=== PATIENT | female | born 1985 | race Caucasian/White ===

== ENCOUNTER 2020-03-05 13:02 | Outpatient (CLI) | payer MEDICAID | END 2020-03-05 13:03 | disposition home or self-care (01) | LOC: COV 13:02 | PROVIDERS: ATTEND Family Medicine | DX: R50.9 Fever, unspecified (principal); M79.10 Myalgia, unspecified site; R53.83 Other fatigue; R11.2 Nausea with vomiting, unspecified; Z20.828 Contact with and (suspected) exposure to other viral communicable diseases ==

== ENCOUNTER 2020-06-21 08:00 | Outpatient (CLI) | payer MEDICAID ==
[2020-06-21 13:34] LABS: BASOPHILS # (AUTO) 0.1 10^3/uL (0.0-0.1); BASOPHILS % (AUTO) 0.8 %; EOSINOPHILS # (AUTO) 0.2 10^3/uL (0.0-0.7); EOSINOPHILS % (AUTO) 2.6 %; HCT - HEMATOCRIT 40.8 % (37.0-47.0); HGB - HEMOGLOBIN 13.4 g/dL (12.0-16.0); LYMPHOCYTES # (AUTO) 1.9 10^3/uL (1.5-3.5); MEAN CORPUSCULAR HEMOGLOBIN 30.5 pg (27.0-31.0); MEAN CORPUSCULAR HGB CONC 32.8 g/dL (32.0-36.0); MEAN CORPUSCULAR VOLUME 92.7 fL (81.0-99.0); MEAN PLATELET VOLUME 10.4 fL (7.9-10.8); MONOCYTES # (AUTO) 0.7 10^3/uL (0.0-1.0); MONOCYTES % (AUTO) 8.7 %; NEUTROPHILS # (AUTO) 4.8 10^3/uL (1.5-6.6); NEUTROPHILS % (AUTO) 62.6 %; PLT - PLATELET COUNT 243 10^3/uL (130-450); RED CELL DISTRIBUTION WIDTH 13.8 % (12.0-15.0); WHITE BLOOD COUNT 7.7 x10^3/uL (4.8-10.8)
[2020-06-21 13:50] LABS: ALBUMIN 4.1 g/dL (3.2-5.5); ALBUMIN/GLOBULIN RATIO 1.1 (1.0-2.2); ALKALINE PHOSPHATASE 43 IU/L (42-121); ALT ALANINE AMINOTRANSFERASE 15 IU/L (10-60); AST ASPARTATE AMINOTRANSFERASE 17 IU/L (10-42); BILIRUBIN,TOTAL 0.5 mg/dL (0.2-1.0); BUN - BLOOD UREA NITROGEN 13 mg/dL (6-20); CALCIUM 9.3 mg/dL (8.5-10.3); CARBON DIOXIDE - CO2 23 mmol/L (21-32); CHLORIDE 108 mmol/L (101-111); CHOLESTEROL 190 mg/dL; CREATININE 0.6 mg/dL (0.4-1.0); GFR - MDRD 113 (>89); GLUCOSE 92 mg/dL (70-100); HDL CHOLESTEROL 48 mg/dL; LDL CHOLESTEROL,CALCULATED 122 mg/dL; LDL/HDL RATIO 2.5 (<4.4); SODIUM 138 mmol/L (135-145); TOTAL PROTEIN 7.9 g/dL (6.7-8.2); TRIGLYCERIDES 99 mg/dL; VLDL CHOLESTEROL 20 mg/dL
[2020-06-21 14:10] LABS: THYROID STIMULATING HORMONE 0.79 uIU/mL (0.34-5.60)
== END 2020-06-21 23:59 | disposition home or self-care (01) ==
LOC: LAB.WCP 08:00
PROVIDERS: ATTEND Nurse Practitioner
DX: Z00.00 Encounter for general adult medical examination without abnormal findings (principal); R53.83 Other fatigue; Z98.84 Bariatric surgery status; Z13.220 Encounter for screening for lipoid disorders; Z13.228 Encounter for screening for other metabolic disorders
CPT/HCPCS: 36415; 80053; 80061; 82306; 82607; 83721; 84443; 85025

== ENCOUNTER 2020-07-18 14:25 | Outpatient (CLI) | payer MEDICAID ==
--- NOTE | 2020-07-19 09:00 | Mammography Report ---
BILATERAL DIGITAL SCREENING MAMMOGRAM 3D/2D: 07/18/2020 CLINICAL: Family history of breast cancer. Routine screening. Baseline exam. No prior exams were available for comparison. The tissue of both breasts is extremely dense, which l owers the sensitivity of mammography. No significant masses, calcifications, or other findings are seen in either breast. IMPRESSION: NEGATIVE There is no mammographic evidence of malignancy. A 1 year screening mammogram is recommended. This exam was interpreted at Station ID: [id number]. NOTE: For mammograms, a report in lay terms will be sent to the patient. Approximately 15% of breast malignancies will not be visualized mammographically. In the management of a palpable breast mass, a negative mammogram must not discourage biopsy of a clinically suspicious lesion. Electronically Signed By: Case Weeks M.D., [email or web address]:07/18/2020 16:49:20 ACR BI-RADS Category 1: Negative [id number] PARENCHYMAL PATTERN: (VD) - The breast(s) demonstrate(s) extremely dense parenchyma, limiting the sen sitivity of mammography. BI-RADS CATEGORY: (1) - 1 RECOMMENDATION: (ANNUAL) - Recommend routine annual screening mammography. [id number] 1 year screening LATERALITY: (B)
== END 2020-07-18 14:26 | disposition home or self-care (01) ==
LOC: DI.N 14:25
PROVIDERS: ATTEND Nurse Practitioner
DX: Z12.31 Encounter for screening mammogram for malignant neoplasm of breast (principal); Z80.3 Family history of malignant neoplasm of breast

== ENCOUNTER 2020-07-25 08:13 | Outpatient (CLI) | payer MEDICAID ==
[2020-07-25 08:57] VITALS: BP 97/64
--- NOTE | 2020-07-25 08:57 | SLEEP CARE CONSULTATION ---
Information from patient questionnaire entered by Nasreen Thornton. I have reviewed and concur with the information entered by Nasreen Thornton. This document represents the service I personally performed and the decisions made by , Samia Ramirez ARNP. History of Present Illness Service Date and Time: 07/25/2020 0813 Reason for Visit: New patient, Previously diagnosed sleep apnea (mild - AHI 8.8 in 2013), Re-establish care Chief Complaint: reports: Unrefreshed sleep, Snoring, Excessive daytime sleepiness, Frequent awakenings at night, Other (can't sleep). denies: Observed pauses in breathing Date of Onset: months Usual bedtime: 3 am Time it takes to fall asleep: about 30 minutes if I try to go to bed before 3 am Snores at night: Yes Observed to quit breathing while asleep: No Sleeps alone due to snoring: No Number of times waking at night: 3-4 times Reasons for waking at night: reports: Pain. denies: Choking, Snoring, Gasping for air Toss, Turn, or Twitch while sleeping: Yes Recalls having dreams: No Usually gets out of bed at: 8 am Feels refreshed in the morning: No Morning headache: No Sleepy or fatigued during the day: Yes Ever fallen asleep while driving: No Takes day naps: Yes (1 time a week) Dreams during day naps: No Prior sleep studies: Yes Year and Where: 2013 [facility] Type of Sleep Study: Polysomnography Additional HPI information: SYLVIA VAZQUEZ was diagnosed to have mild, AHI 8.8, obstructive sleep apnea- hypopnea syndrome and comes in today to re-establish care. She lost her CPAP ma chine through a few moves and has not been able to use it for at least 2 years. - Parasomnia Symptoms Ever been unable to move upon waking from sleep: Yes Walks in sleep: No Talks in sleep: No Ever acted out dreams in sleep: No Ever felt weak in the knees when startled or emotional: No Bothered by creepy, crawly, restless sensations in legs: No Problems with memory or concentration: Yes Subjective Initial [place] Sleepiness Scale score: 15 (in 2013) Current [place] Sleepiness Scale score: 16 Past Medical History Past Medical History: reports: Arthritis, Anxiety, Asthma, Depression. 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 Patient is Single and lives in [place]. Have you smoked in the past 12 months: No Alcohol use: Yes Alcohol amount and frequency: 1-2 drinks every 6 months Caffeine use: Yes Caffeine amount and frequency: 1 cup coffee daily Family History Family history of sleep disordered breathing: Yes (Grandma) Family Hx Sleep Apnea: Grandparent: Sleep apnea - Treated Allergies and Home Medications Drug allergies reviewed: Yes (NKDA) Home medication list reviewed: Yes Allergy and home medication list: Amytriptyline HCI 10 mg 1 nightly Bupropion HCI 75 mg twice daily Vitamin D3 50,000 UI once a week Review of Systems Weight loss over past 5 years: 80 Cardiovascular: reports: leg or foot swelling. denies: high blood pressure Gastrointestinal: reports: nausea. denies: heartburn Neurological: reports: headaches Psychiatric: reports: anxiety, depression Ear/Nose/Throat: denies: nasal congestion, dry mouth/throat, tonsillectomy, wisdom teeth removed Endocrine: reports: sluggishness, too hot or cold Musculoskeletal: reports: back pain Immunologic: reports: allergies to food or environment (Propel) Physical Exam Blood Pressure: 97/64 Cuff size: wrist Heart Rate: 80 O2 Saturation: 97 Height: 5 ft 5 in Weight: 275 lb Body Mass Index: 45.7 BMI Classification: Morbidly Obese Heart: regular rate and rhythm Lungs: clear bilaterally Impression and Plan 1. Suspected Obstructive Sleep Apnea-Hypopnea Syndrome, as previously diagnosed and as suggested by a continuing history of loud and irregular snoring, frequent awakening during the night, unrefreshed sleep, cognitive impairment, and excessive daytime sleepiness. I reviewed with patient that a narrow oropharynx and obesity are common predisposing factors for obstructive sleep apnea-hypopnea syndrome. Patient lost her CPAP machine and would like to resume treatment. I advised her that we will have to reverify her diagnosis and severity to be able to resume CPAP therapy. She voiced understanding. I recommend proceeding to polysomnography to confirm the diagnosis and to assess severity. The pathophysiology of obstructive sleep apnea-hypopnea syndrome was discussed with the patient and health risks of cardiovascular and cerebrovascular disease if not treated. Risks of drowsy driving discussed in detail and patient advised to avoid long distance driving and to dust puller at the first sign of drowsiness. Patient agreed to plan. * Schedule polysomnography +- manual CPAP titration study and return in 1-2 weeks after the study to discuss result and initiate therapy. * Avoid long distance driving or driving when feeling sleepy. * Avoid alcohol, sedative and muscle relaxant around bedtime. * Attempt to lose weight. * Review instructions provided by trained office staff on how to prepare for the sleep study. * Return for follow-up after sleep study completed. Counseling Topics: Weight loss health impact Visit Type: In Office Time Spent with Patient (minutes): 30 Provider Statement: I spent 100% of the Face to Face Visit with the patient with greater than 50% spent counseling the patient and coordination of care.
== END 2020-07-25 08:14 | disposition home or self-care (01) ==
LOC: SC 08:13
PROVIDERS: ATTEND Nurse Practitioner Family
DX: G47.33 Obstructive sleep apnea (adult) (pediatric) (principal); E66.01 Morbid (severe) obesity due to excess calories; Z68.42 Body mass index [BMI] 45.0-49.9, adult
CPT/HCPCS: 99203; 99212

== ENCOUNTER 2020-07-31 10:32 | Emergency (ER) | payer MEDICAID ==
[2020-07-31] MEDS ORDERED: SODIUM CHLORIDE 0.9% 1,000 ML IV STA (12:36)
--- NOTE | 2020-07-31 12:40 | ED Physician Documentation ---
PD HPI NVD - Stated complaint Stated Complaint: NAUSEA/BACK PX - Chief complaint Chief Complaint: Abd Pain - History obtained from History obtained from: Patient - History of Present Illness Timing - onset: How many weeks ago (5) Timing - duration: Weeks Timing - details: Abrupt onset, Still present, Waxing and waning Associated symptoms: Other (nausea vomiting and headache) Contributing factors: Other (started with initiation of therapy with bupropion.) Improved by: Other (decreasing the dose helped for a while) Worsened by: Eating Similar symptoms before: Has not had sx before Recently seen: Clinic - Additonal information Additional information: 35-year-old female who is s/p gastric bypass surgery has developed some nausea and vomiting after starting bupropion. She was on a dose of 150 mg for about 2 weeks she had intolerable side effect of vomiting and her dose was changed to 75 twice daily. She tolerated this for some time this is now become intolerable again she is now developed nausea and dry heaves. She talk to a psychiatrist yesterday who recommended she taper off of that medication which she will start today. She did not take her dose this morning. She also has a headache she has a history of migraines she states this headache does not feel like a migraine headache. Review of Systems Constitutional: denies: Fever Eyes: denies: Decreased vision Ears: denies: Ear pain Nose: denies: Congestion Throat: denies: Sore throat Cardiac: denies: Chest pain / pressure, Palpitations Respiratory: denies: Dyspnea, Cough GI: reports: Nausea, Vomiting. denies: Abdominal Pain, Constipation, Diarrhea : denies: Dysuria, Frequency Skin: denies: Rash Musculoskeletal: reports: Back pain (lower back pain is worse than usual.). 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 : None HEENT: None Psych: Depression Musculoskeletal: None Derm: None - Past Surgical History Past Surgical History: Yes General: Cholecystectomy, Gastric surgery Ortho: Other - Present Medications Home Medications: Ambulatory Orders Medication Instructions Recorded Confirmed Amitriptyline [Elavil] 10 mg PO DAILY 07/31/20 07/31/20 Ondansetron Odt [Zofran] 4 mg TL Q6H PRN #10 tab 07/31/20 buPROPion HCL [Bupropion HCl] 150 mg PO DAILY 07/31/20 07/31/20 - Allergies Allergies/Adverse Reactions: Allergies Allergy/AdvReac Type Severity Reaction Status Date / Time No Known Drug Allergies Allergy Verified 07/31/20 10:38 - Social History Does the pt smoke?: No Smoking Status: Never smoker Does the pt drink ETOH?: No Does the pt have substance abuse?: No - Immunizations Immunizations are current?: Yes - POLST Patient has POLST: No PD ED PE NORMAL - Vitals Vital signs reviewed: Yes (Hypertensive) - General General: Alert and oriented X 3, No acute distress, Well developed/nourished - HEENT HEENT: Atraumatic, PERRL, EOMI - Neck Neck: Supple, no meningeal sign - Cardiac Cardiac: RRR, No murmur - Respiratory Respiratory: No respiratory distress, Clear bilaterally - Abdomen Abdomen: Normal bowel sounds, Soft, Non tender, Non distended, No organomegaly - Back Back: No CVA TTP, No spinal TTP - Derm Derm: Normal color, Warm and dry, No rash - Extremities Extremities: No deformity, No edema - Neuro Neuro: Alert and oriented X 3, 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, No motor deficit, No sensory deficit, Normal speech Eye Opening: Spontaneous Motor: Obeys Commands Verbal: Oriented GCS Score: 15 - Psych Psych: Normal mood, Normal affect Results - Vitals Vitals: Vital Signs - 24 hr 07/31/20 07/31/20 07/31/20 10:38 11:51 13:00 Temperature 36.7 C 36.9 C Heart Rate 78 81 79 Respiratory 20 16 18 Rate Blood Pressure 138/84 H 111/73 115/75 O2 Saturation 99 100 100 Oxygen O2 Source Room air - Labs Labs: Laboratory Tests 07/31/20 07/31/20 07/31/20 12:13 12:47 12:47 WBC 7.0 RBC 4.67 Hgb 14.0 Hct 41.4 MCV 88.7 MCH 30.0 MCHC 33.8 RDW 12.3 Plt Count 255 MPV 9.2 Neut # (Auto) 5.1 Lymph # (Auto) 1.3 L [place] # (Auto) 0.5 Eos # (Auto) 0.1 Baso # (Auto) 0.1 Absolute Nucleated RBC 0.00 Nucleated RBC % 0.0 Sodium 140 Potassium 4.0 Chloride 103 Carbon Dioxide 24 Anion Gap 13.0 BUN 9 Creatinine 0.6 Estimated GFR (MDRD) 112 Glucose 97 Calcium 9.6 Total Bilirubin 0.6 AST 29 ALT 20 Alkaline Phosphatase 47 Total Protein 7.9 Albumin 4.1 Globulin 3.8 Albumin/Globulin Ratio 1.1 Lipase 38 Urine Color YELLOW Urine Clarity CLEAR Urine pH 7.0 Ur Specific [place] 1.015 Urine Protein NEGATIVE Urine Glucose (UA) NEGATIVE Urine Ketones NEGATIVE Urine Occult Blood NEGATIVE Urine Nitrite NEGATIVE Urine Bilirubin NEGATIVE Urine Urobilinogen 0.2 (NORMAL) Ur Leukocyte Esterase NEGATIVE Ur Microscopic Review NOT INDICATED Urine Culture Comments NOT INDICATED Procedures - IVC sono (time) 1234 Bedside IVC sono: IVC measures (cm) (1.05), Dehydration (est 1-2 liter deficit) PD MEDICAL DECISION MAKING - ED course Complexity details: reviewed old records, reviewed results, re-evaluated patient, considered differential, d/w patient ED course: 35 y/o female s/p gastric bypass has been vomiting and is dehydrated. She has headache and worsening back pain is suspect secondary to the dehydration and the vomiting appears to be an intolerance of buproprion. She is tapering her medication and we are providing hydration today. Departure - Departure Disposition: 01 Home, Self Care Clinical Impression: Dehydration Vomiting Qualifiers: Vomiting type: unspecified Vomiting Intractability: non-intractable Nausea presence: with nausea Qualified Code(s): R11.2 - Nausea with vomiting, unspecified Condition: Stable Instructions: ED Dehydration, ED Diet Vomiting Diarrhea Follow-Up: Alayna Ferrell ARNP, [employer] [Primary Care Provider] - Prescriptions: Ondansetron Odt [Zofran] 4 mg TL Q6H PRN #10 tab PRN Reason: Nausea / Vomiting Comments: continue the taper of the Bupropion and follow up with your primary as planned.
[2020-07-31 12:42] LABS: BILIRUBIN,URINE NEGATIVE (NEGATIVE); GLUCOSE, URINE (UA) NEGATIVE (NEGATIVE); KETONES,URINE (UA) NEGATIVE (NEGATIVE); LEUKOCYTE ESTERASE, URINE NEGATIVE (NEGATIVE); NITRITE,URINE NEGATIVE (NEGATIVE); OCCULT BLOOD,URINE NEGATIVE (NEGATIVE); PROTEIN,URINE NEGATIVE (NEGATIVE); UROBILINOGEN,URINE 0.2 (NORMAL) E.U./dL (NORMAL)
[2020-07-31 12:46] LABS: CLARITY,URINE CLEAR (CLEAR)
[2020-07-31 13:04] LABS: BASOPHILS # (AUTO) 0.1 10^3/uL (0.0-0.1); BASOPHILS % (AUTO) 0.7 %; EOSINOPHILS # (AUTO) 0.1 10^3/uL (0.0-0.7); EOSINOPHILS % (AUTO) 1.4 %; LYMPHOCYTES # (AUTO) 1.3 10^3/uL (1.5-3.5); LYMPHOCYTES % (AUTO) 18.9 %; MEAN CORPUSCULAR HGB CONC 33.8 g/dL (32.0-36.0); MEAN CORPUSCULAR VOLUME 88.7 fL (81.0-99.0); MEAN PLATELET VOLUME 9.2 fL (7.9-10.8); MONOCYTES # (AUTO) 0.5 10^3/uL (0.0-1.0); NEUTROPHILS # (AUTO) 5.1 10^3/uL (1.5-6.6); NEUTROPHILS % (AUTO) 71.9 %; PLT - PLATELET COUNT 255 10^3/uL (130-450); RED BLOOD COUNT 4.67 10^6/uL (4.20-5.40); RED CELL DISTRIBUTION WIDTH 12.3 % (12.0-15.0)
[2020-07-31 13:16] LABS: ALBUMIN 4.1 g/dL (3.2-5.5); ALBUMIN/GLOBULIN RATIO 1.1 (1.0-2.2); BILIRUBIN,TOTAL 0.6 mg/dL (0.2-1.0); CALCIUM 9.6 mg/dL (8.5-10.3); CREATININE 0.6 mg/dL (0.4-1.0); TOTAL PROTEIN 7.9 g/dL (6.7-8.2)
[2020-07-31 13:57] VITALS: BP 117/81
== END 2020-07-31 13:56 | disposition home or self-care (01) ==
LOC: ED 10:32
DX: E86.0 Dehydration (principal); R11.2 Nausea with vomiting, unspecified; R51.9 Headache, unspecified; M54.5 Low back pain; I10 Essential (primary) hypertension; Z98.84 Bariatric surgery status
CPT/HCPCS: 36415; 80053; 81001; 81003; 83690; 85025; 87086; 96360; 99284

== ENCOUNTER 2020-08-21 08:00 | Outpatient (CLI) | payer MEDICAID | END 2020-08-21 23:59 | disposition home or self-care (01) | LOC: LAB.WCP 08:00 | PROVIDERS: ATTEND Nurse Practitioner | DX: E55.9 Vitamin D deficiency, unspecified (principal) | CPT/HCPCS: 36415; 82306 ==

== ENCOUNTER 2020-09-16 18:03 | Outpatient (CLI) | payer MEDICAID | END 2020-09-16 18:04 | disposition EMS.NT | LOC: EMS 18:03 | DX: M54.6 Pain in thoracic spine (principal) ==

== ENCOUNTER 2020-09-16 18:50 | Outpatient (CLI) | payer MEDICAID | END 2020-09-16 18:51 | disposition critical access hospital (66) | LOC: EMS 18:50 | PROVIDERS: ATTEND Emergency Medicine | DX: M54.6 Pain in thoracic spine (principal); R07.81 Pleurodynia; X50.0XXA Overexertion from strenuous movement or load, initial encounter; Y93.89 Activity, other specified; Y92.512 Supermarket, store or market as the place of occurrence of the external cause | CPT/HCPCS: A0425; A0429; A0999 ==

== ENCOUNTER 2020-09-16 18:56 | Emergency (ER) | payer MEDICAID ==
[2020-09-16] MEDS ORDERED: KETOROLAC 30 MG/ML VIAL IVP STA (19:26)
[2020-09-16] MEDS ORDERED: LORazepam 2 MG/ML VIAL IVP STA (19:26)
[2020-09-16] MEDS ORDERED: HYDROmorphone 1 MG/ML CARPUJECT IVP STA (19:26)
--- NOTE | 2020-09-16 19:27 | ED Physician Documentation ---
PD HPI BACK PAIN - Stated complaint Stated Complaint: BACK PAIN - History obtained from History obtained from: Patient - Additional information Additional information: 35-year-old woman developed sudden onset right flank pain while lifting cat litter while shopping about 10 days ago. Its persistent since, worse with touching bending or twisting. No urinary complaints. She is had some chills and presyncopal episodes related to this and is feeling very anxious. Currently on her menses. Review of Systems Ten Systems: 10 systems reviewed and negative Constitutional: reports: Chills, Sweats. denies: Fever Cardiac: denies: Chest pain / pressure, Palpitations GI: reports: Nausea, Vomiting, Reviewed and negative. 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 : None HEENT: None Psych: Depression Musculoskeletal: None Derm: None - Past Surgical History Past Surgical History: Yes General: Cholecystectomy, Gastric surgery Ortho: Other - Present Medications Home Medications: Ambulatory Orders Medication Instructions Recorded Confirmed Cyclobenzaprine [Flexeril] 10 mg PO TID PRN #10 tablet 09/16/20 Fluoxetine HCl [Prozac] 30 mg PO DAILY 09/16/20 09/16/20 HYDROcod/ACETAM 5/325 [[place] 5/325] 1 - 2 tab PO Q6H PRN #15 tablet 09/16/20 Lidocaine Patch 5% [Lidoderm Patch] 1 patch TOP DAILY PRN #10 patch 09/16/20 - Allergies Allergies/Adverse Reactions: Allergies Allergy/AdvReac Type Severity Reaction Status Date / Time No Known Drug Allergies Allergy Verified 07/31/20 10:38 - Social History Does the pt smoke?: No Smoking Status: Never smoker Does the pt drink ETOH?: No Does the pt have substance abuse?: No - Immunizations Immunizations are current?: Yes - POLST Patient has POLST: No PD ED PE NORMAL - Vitals Vital signs reviewed: Yes - General General: Alert and oriented X 3, Other (Appears uncomfortable) - Abdomen Abdomen: Normal bowel sounds, Soft, Non tender - Back Back: Other (Quite tender to the right flank, could be muscular. No midline tenderness.) - Derm Derm: No rash - Extremities Extremities: Other (The patient has equal and normal Achilles and patellar reflexes bilaterally. Normal sensation in all areas of the legs. Patient denies saddle anesthesia. Normal strength in flexion-extension at the ankles, knees, and flexion of the hips.) - Neuro Neuro: Alert and oriented X 3, Normal speech Results - Vitals Vitals: Vital Signs - 24 hr 09/16/20 09/16/20 09/16/20 19:19 20:06 21:17 Temperature 37.3 C 36.8 C Heart Rate 90 88 85 Respiratory 18 14 16 Rate Blood Pressure 117/81 H 117/67 120/74 O2 Saturation 100 96 100 Oxygen O2 Source Room air - Labs Labs: Laboratory Tests 09/16/20 09/16/20 09/16/20 19:30 19:40 19:40 WBC 5.1 RBC 4.04 L Hgb 12.0 Hct 35.7 L MCV 88.4 MCH 29.7 MCHC 33.6 RDW 12.5 Plt Count 232 MPV 9.4 Neut # (Auto) 2.6 Lymph # (Auto) 1.6 [place] # (Auto) 0.6 Eos # (Auto) 0.2 Baso # (Auto) 0.0 Absolute Nucleated RBC 0.00 Nucleated RBC % 0.0 Sodium 136 Potassium 3.0 L Chloride 101 Carbon Dioxide 24 Anion Gap 11.0 BUN 10 Creatinine 0.6 Estimated GFR (MDRD) 112 Glucose 109 H Calcium 9.0 Urine Color YELLOW Urine Clarity HAZY Urine pH 5.0 Ur Specific [place] 1.025 Urine Protein NEGATIVE Urine Glucose (UA) NEGATIVE Urine Ketones 15 H Urine Occult Blood MODERATE H Urine Nitrite NEGATIVE Urine Bilirubin NEGATIVE Urine Urobilinogen 1 (NORMAL) Ur Leukocyte Esterase NEGATIVE Urine RBC 6-10 H Urine WBC 0-3 Ur Squamous Epith Cells FEW Squamous Urine Bacteria Few Ur Microscopic Review INDICATED Urine Culture Comments NOT INDICATED Urine HCG, Qual NEGATIVE Urine Opiates Screen NEGATIVE Ur Oxycodone Screen POSITIVE H Urine Methadone Screen NEGATIVE Ur Propoxyphene Screen NEGATIVE Ur Barbiturates Screen NEGATIVE Ur Tricyclics Screen NEGATIVE Ur Phencyclidine Scrn NEGATIVE Ur Amphetamine Screen NEGATIVE U Methamphetamines Scrn NEGATIVE U Benzodiazepines Scrn NEGATIVE Urine Cocaine Screen NEGATIVE U Cannabinoids Screen NEGATIVE PD MEDICAL DECISION MAKING - ED course ED course: 35-year-old woman presents with right flank pain, it is over her kidney but a CT demonstrates no ureterolithiasis and there is no evidence of infection. Pain was easy to control here. Note made of oxycodone in the urinalysis which is concerning, she said she had some leftover from a dental appointment and may have taken it. Departure - Departure Disposition: 01 Home, Self Care Clinical Impression: Back pain Condition: Good Record reviewed to determine appropriate education?: Yes Instructions: ED Low Back Pain Injury Prescriptions: Cyclobenzaprine [Flexeril] 10 mg PO TID PRN #10 tablet PRN Reason: Spasms Lidocaine Patch 5% [Lidoderm Patch] 1 patch TOP DAILY PRN #10 patch PRN Reason: pain HYDROcod/ACETAM 5/325 [[place] 5/325] 1 - 2 tab PO Q6H PRN #15 tablet PRN Reason: Pain Comments: No evidence of kidney stone on CT. Return for new or worsening symptoms. Heat and gentle stretching. Follow-up with your doctor and discuss physical therapy.
[2020-09-16 19:36] LABS: MUDS CUTOFF CONCENTRATIONS CUTOFF CONC BELOW:
[2020-09-16 19:37] LABS: BILIRUBIN,URINE NEGATIVE (NEGATIVE); GLUCOSE, URINE (UA) NEGATIVE (NEGATIVE); KETONES,URINE (UA) 15 mg/dL (NEGATIVE); LEUKOCYTE ESTERASE, URINE NEGATIVE (NEGATIVE); NITRITE,URINE NEGATIVE (NEGATIVE); OCCULT BLOOD,URINE MODERATE (NEGATIVE); PROTEIN,URINE NEGATIVE (NEGATIVE); UROBILINOGEN,URINE 1 (NORMAL) E.U./dL (NORMAL)
[2020-09-16 19:40] LABS: CLARITY,URINE HAZY (CLEAR); HCG UR QUAL NEGATIVE
[2020-09-16 19:47] LABS: BASOPHILS % (AUTO) 0.8 %; EOSINOPHILS # (AUTO) 0.2 10^3/uL (0.0-0.7); EOSINOPHILS % (AUTO) 3.9 %; HCT - HEMATOCRIT 35.7 % (37.0-47.0); LYMPHOCYTES # (AUTO) 1.6 10^3/uL (1.5-3.5); LYMPHOCYTES % (AUTO) 31.6 %; MEAN CORPUSCULAR HEMOGLOBIN 29.7 pg (27.0-31.0); MEAN CORPUSCULAR HGB CONC 33.6 g/dL (32.0-36.0); MEAN CORPUSCULAR VOLUME 88.4 fL (81.0-99.0); MEAN PLATELET VOLUME 9.4 fL (7.9-10.8); MONOCYTES # (AUTO) 0.6 10^3/uL (0.0-1.0); MONOCYTES % (AUTO) 12.1 %; NEUTROPHILS # (AUTO) 2.6 10^3/uL (1.5-6.6); NEUTROPHILS % (AUTO) 51.4 %; PLT - PLATELET COUNT 232 10^3/uL (130-450); RED BLOOD COUNT 4.04 10^6/uL (4.20-5.40); RED CELL DISTRIBUTION WIDTH 12.5 % (12.0-15.0); WHITE BLOOD COUNT 5.1 x10^3/uL (4.8-10.8)
[2020-09-16 19:49] LABS: AMPHETAMINE SCREEN,URINE NEGATIVE (NEGATIVE); BARBITURATE SCREEN,UR NEGATIVE (NEGATIVE); BENZODIAZEPINES SCREEN, URINE NEGATIVE (NEGATIVE); COCAINE SCREEN URINE NEGATIVE (NEGATIVE); METHADONE SCREEN, URINE NEGATIVE (NEGATIVE); METHAMPHETAMINES SCREEN, URINE NEGATIVE (NEGATIVE); OPIATE SCREEN, URINE NEGATIVE (NEGATIVE); OXYCODONE SCREEN, URINE POSITIVE (NEGATIVE); PROPOXYPHENE SCREEN, URINE NEGATIVE (NEGATIVE); THC CANNABINOID SCREEN, URINE NEGATIVE (NEGATIVE); TRICYCLIC ANTIDEPRESSANT,URINE NEGATIVE (NEGATIVE)
[2020-09-16 19:52] LABS: SQUAMOUS EPITHELIAL CELL,UR FEW Squamous (<= Few); WBC,URINE 0-3 /HPF (0-5)
[2020-09-16 19:53] LABS: BACTERIA,URINE Few /HPF (None Seen)
[2020-09-16 19:57] LABS: CREATININE 0.6 mg/dL (0.4-1.0)
--- NOTE | 2020-09-16 21:58 | CT Report ---
PROCEDURE: Abdomen/Pelvis WO INDICATIONS: R flank pain TECHNIQUE: Noncontrast 5 mm thick sections acquired from the diaphragms to the symphysis. 5 mm coronal and sagi ttal reformats were then performed. For radiation dose reduction, the following was used: automated exposure control, adjustment of mA and/or kV according to patient size. COMPARISON: None. FINDINGS: Image quality: Excellent. ABDOMEN: Lung bases: Normal Liver: Normal Spleen: Normal Gallbladder: Surgically absent Bile ducts: Normal Pancreas: Normal Adrenals: Normal Kidneys: Normal Bowel loops: Normal Postsurgical changes involving the stomach No free fluid or air. Colonic diverticulosis incidentally noted without evidence of acute inflammatio n. The appendix appears normal. Abdominal nodes: Normal Aorta: Normal IVC: Normal No ventral hernias PELVIS: Bladder: Normal Pelvic nodes: Normal Groin: Normal Bones: No vertebral body compression fracture. No suspicious bone lesion. IMPRESSION: No urolithiasis. No evidence of urinary obstruction. Normal appearance of the appendix. Additional chronic and incidental findings as above. Reviewed by: Braden Quiñones MD on 09/16/2020 9:57 PM PDT Approved by: Braden Quiñones MD on 09/16/2020 9:57 PM PDT Station ID: [id number]
[2020-09-16 22:14] VITALS: BP 118/68
== END 2020-09-16 22:15 | disposition home or self-care (01) ==
LOC: EDUNIT# → ED 18:56
DX: M54.9 Dorsalgia, unspecified (principal); R10.9 Unspecified abdominal pain; I10 Essential (primary) hypertension
CPT/HCPCS: 36415; 74176; 80048; 80306; 81001; 81025; 85025; 96374; 96375; 99284; J1170; J2060; 81003; 87086

== ENCOUNTER 2020-12-26 14:55 | Outpatient (CLI) | payer MEDICAID ==
--- NOTE | 2020-12-26 15:23 | SLEEP CARE CONSULTATION ---
Information from patient questionnaire entered by Nasreen Thornton. I have reviewed and concur with the information entered by Nasreen Thornton. This document represents the service I personally performed and the decisions made by , Samia Ramirez ARNP. History of Present Illness Service Date and Time: 12/26/2020 1455 Initial Patterson Sleepiness Scale score: 15 (in 2013) Current Patterson Sleepiness Scale score: 15 Additional HPI information: SYLVIA VAZQUEZ returns for follow up and results of the recently performed polysomnography. I explained the pathophysiology behind obstructive sleep apnea. We then spent quite a bit of time discussing different treatment options. For mild obstructive sleep apnea, surgery and oral appliance are alternatives to nasal CPAP therapy but in moderate or severe cases, nasal CPAP is the most effective and reliable treatment. Because apnea is primarily in supine position, then positional management therapy could be effective. Methods discussed such as positioning with pillows, using a T-shirt with tennis balls in the back, and shown commercial products that have a pillow format on back to prevent supine sleep. I reviewed the impact of weight changes on sleep apnea and strongly recommended losing weight. After some discussion, the patient opted to go with the nasal CPAP therapy. Nasal autoCPAP set at 4-15 cmH20 will be ordered with rationale explained. A manual titration study will be ordered if unable to find optimal pressure with office adjustments. I explained how CPAP machine works with sample devices Respironics Dreamstation and ResPSafe [id number] and what to expect when using the machine. Using CPAP every night in order to get used to it was emphasized. Patient advised to put CPAP mask on before getting into bed so as not to fall asleep without CPAP. To assist acclimation to CPAP use, it could also be used for a short time during day while reading or watching TV. The patient was instructed to call the CPAP supplier to discuss any mechanical problem that may occur. If the mask given is uncomfortable or is difficult to keep on through the night even with adjustment, contact the CPAP supplier as many will replace with another mask style if notified before 30 days. If snoring or perceives is not getting enough air or too much air from the machine, notify this office. Patient does not drink alcohol. Patient was cautioned about risks of drowsy driving until sleepiness symptoms resolve. Sleep Study - Results Type of Sleep Study: Polysomnography Prior sleep studies: Yes Year and Where: 2020 - [facility]; 2013 - [facility] Polysomnography/Home Sleep Study results: This nocturnal polysomnographic sleep study showed moderate snoring which was continuous in nature. The apnea/hypopnea index was 9.1 and the sleep efficiency was 94.1 %. The PLM index was 2.1. The sleep study is consistent with mild obstructive sleep apnea with desaturation events to 87%. Given the history of excessive dayUme sleepiness, would recommend the patient return to the sleep lab for a fullnight CPAP titration study. Alternative therapies, including dental appliances and surgical procedures could also be considered. Attaining optimal weight is recommended. The EKG showed no significant arrhythmias. Allergies and Home Medications Home medication list reviewed: Yes (no new meds) Review of Systems Review of systems same as previous: Yes (no changes) Physical Exam Heart Rate: 86 O2 Saturation: 98 Height: 5 ft 5 in Weight: 253 lb Body Mass Index: 42.0 BMI Classification: Morbidly Obese Impression and Plan 1. Obstructive Sleep Apnea-Hypopnea Syndrome, mild, with lowest oxygen saturation of 87%. Obviously this is the cause of the patients symptoms of unrefreshed sleep, and excessive daytime sleepiness. Positive pressure therapy could benefit anxiety and depression. As mentioned above, the patient will be started on nasal autoCPAP therapy with pressure set at 4-15 cmH2O. A manual titration study will be completed if unable to find optimal treatment pressure with office adjustments. Compliance guidelines also reviewed. A copy of compliance guidelines will be given for reference at check out. Because the apnea is more severe supine, I instructed to avoid sleeping supine using pillow positioning until able to start CPAP use. * Nasal auto CPAP therapy, pressure at 4-15 cm H2O. * Attempt to lose weight. * Avoid alcohol consumption near bedtime. * Avoid supine sleep until using CPAP. * The patient is again cautioned about driving until sleepiness completely resolves. * Return one month after CPAP obtained. I will assess response to therapy and compliance at that time. Counseling Topics: Weight loss health impact Time Spent with Patient (minutes): 20
== END 2020-12-26 14:56 | disposition home or self-care (01) ==
LOC: SC 14:55
PROVIDERS: ATTEND Nurse Practitioner Family
DX: G47.33 Obstructive sleep apnea (adult) (pediatric) (principal); E66.01 Morbid (severe) obesity due to excess calories; Z68.41 Body mass index [BMI] 40.0-44.9, adult
CPT/HCPCS: 99212; 99213

== ENCOUNTER 2021-01-22 08:00 | Outpatient (CLI) | payer MEDICAID ==
[2021-01-22 18:55] LABS: BASOPHILS # (AUTO) 0.1 10^3/uL (0.0-0.1); BASOPHILS % (AUTO) 0.6 %; EOSINOPHILS # (AUTO) 0.1 10^3/uL (0.0-0.7); EOSINOPHILS % (AUTO) 1.8 %; HCT - HEMATOCRIT 36.6 % (37.0-47.0); HGB - HEMOGLOBIN 11.5 g/dL (12.0-16.0); LYMPHOCYTES # (AUTO) 2.1 10^3/uL (1.5-3.5); MEAN CORPUSCULAR HEMOGLOBIN 28.8 pg (27.0-31.0); MEAN CORPUSCULAR HGB CONC 31.4 g/dL (32.0-36.0); MEAN CORPUSCULAR VOLUME 91.5 fL (81.0-99.0); MEAN PLATELET VOLUME 9.8 fL (7.9-10.8); MONOCYTES # (AUTO) 0.6 10^3/uL (0.0-1.0); MONOCYTES % (AUTO) 7.3 %; NEUTROPHILS # (AUTO) 4.9 10^3/uL (1.5-6.6); NEUTROPHILS % (AUTO) 62.9 %; PLT - PLATELET COUNT 258 10^3/uL (130-450); RED CELL DISTRIBUTION WIDTH 13.7 % (12.0-15.0); WHITE BLOOD COUNT 7.8 x10^3/uL (4.8-10.8)
== END 2021-01-22 23:59 | disposition home or self-care (01) ==
LOC: LAB.WCP 08:00
PROVIDERS: ATTEND Physician Assistant Medical
DX: E55.9 Vitamin D deficiency, unspecified (principal); K44.9 Diaphragmatic hernia without obstruction or gangrene
CPT/HCPCS: 36415; 82306; 82728; 85025

== ENCOUNTER 2021-04-13 10:25 | Emergency (ER) | payer MEDICAID ==
[2021-04-13] MEDS ORDERED: SODIUM CHLORIDE 0.9% 1,000 ML IV STA (11:02)
[2021-04-13 11:27] LABS: BASOPHILS % (AUTO) 0.4 %; HCT - HEMATOCRIT 37.6 % (37.0-47.0); HGB - HEMOGLOBIN 12.4 g/dL (12.0-16.0); LYMPHOCYTES # (AUTO) 0.7 10^3/uL (1.5-3.5); LYMPHOCYTES % (AUTO) 10.4 %; MEAN CORPUSCULAR HEMOGLOBIN 29.4 pg (27.0-31.0); MEAN CORPUSCULAR VOLUME 89.1 fL (81.0-99.0); MEAN PLATELET VOLUME 9.7 fL (7.9-10.8); MONOCYTES # (AUTO) 0.2 10^3/uL (0.0-1.0); NEUTROPHILS # (AUTO) 5.9 10^3/uL (1.5-6.6); NEUTROPHILS % (AUTO) 85.9 %; PLT - PLATELET COUNT 206 10^3/uL (130-450); RED BLOOD COUNT 4.22 10^6/uL (4.20-5.40); WHITE BLOOD COUNT 6.9 x10^3/uL (4.8-10.8)
[2021-04-13 11:30] LABS: BILIRUBIN,URINE NEGATIVE (NEGATIVE); GLUCOSE, URINE (UA) NEGATIVE (NEGATIVE); KETONES,URINE (UA) 40 mg/dL (NEGATIVE); LEUKOCYTE ESTERASE, URINE NEGATIVE (NEGATIVE); NITRITE,URINE NEGATIVE (NEGATIVE); OCCULT BLOOD,URINE MODERATE (NEGATIVE); PROTEIN,URINE NEGATIVE (NEGATIVE); UROBILINOGEN,URINE 0.2 (NORMAL) E.U./dL (NORMAL)
[2021-04-13 11:31] LABS: CLARITY,URINE CLEAR (CLEAR); HCG UR QUAL NEGATIVE
[2021-04-13 11:44] LABS: ALBUMIN 4.3 g/dL (3.2-5.5); ALBUMIN/GLOBULIN RATIO 1.2 (1.0-2.2); BILIRUBIN,TOTAL 1.1 mg/dL (0.2-1.0); CALCIUM 9.6 mg/dL (8.5-10.3); CREATININE 0.4 mg/dL (0.4-1.0); POTASSIUM 3.3 mmol/L (3.5-5.0)
[2021-04-13 11:45] LABS: BACTERIA,URINE Few /HPF (None Seen); SQUAMOUS EPITHELIAL CELL,UR MOD Squamous (<= Few); WBC,URINE 0-3 /HPF (0-5)
--- NOTE | 2021-04-13 12:00 | ED Physician Documentation ---
History of Present Illness - Stated complaint Stated Complaint: WEAKNESS - Chief complaint Chief Complaint: General - History obtained from History obtained from: Patient - History of Present Illness Timing: How many days ago (2-3) Pain level max: 0 Pain level now: 0 - Additonal information Additional information: Patient is a 35-year-old female who presents to the emergency department stating she has "just not felt well" for the past several days. Cannot describe it any further than this. She states that she had a gastric bypass about 7 years ago and sometimes does not feel like eating much. She is concerned she could be dehydrated. No fevers. No chills. No nausea or vomiting. No diarrhea or cons tipation. No abdominal pain. No chest pain. No shortness of breath. No focal neurological deficits. Denies any possibility of . Nothing makes it better or worse Review of Systems Ten Systems: 10 systems reviewed and negative Constitutional: denies: Fever, Chills Ears: denies: Ear pain Nose: denies: Rhinorrhea / runny nose, Congestion Throat: denies: Sore throat Cardiac: denies: Chest pain / pressure Respiratory: denies: Cough GI: denies: Abdominal Pain, Nausea, Vomiting, Diarrhea : denies: Dysuria, Frequency, Hesitancy, Now EGA Skin: denies: Rash Musculoskeletal: denies: Neck pain, Back pain PD PAST MEDICAL HISTORY - Past Medical History Cardiovascular: Hypertension Respiratory: None Neuro: None Endocrine/Autoimmune: Other GI: None 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 : None HEENT: None Psych: Depression Musculoskeletal: None Derm: None - Past Surgical History Past Surgical History: Yes General: Cholecystectomy, Gastric surgery Ortho: Other - Present Medications Home Medications: Ambulatory Orders Medication Instructions Recorded Confirmed Fluoxetine HCl [Prozac] 60 mg PO DAILY 09/16/20 09/16/20 Cholecalciferol [Vitamin D3] 5,000 unit ORAL DAILY 04/13/21 04/13/21 Ondansetron [Zuplenz] 4 mg PO PRN PRN 04/13/21 04/13/21 - Allergies Allergies/Adverse Reactions: Allergies Allergy/AdvReac Type Severity Reaction Status Date / Time No Known Drug Allergies Allergy Verified 04/13/21 10:32 - Social History Does the pt smoke?: No Smoking Status: Never smoker Does the pt drink ETOH?: No Does the pt have substance abuse?: No - Immunizations Immunizations are current?: Yes - POLST Patient has POLST: No PD ED PE NORMAL - Vitals Vital signs reviewed: Yes - General General: Alert and oriented X 3, No acute distress, Well developed/nourished - HEENT HEENT: Atraumatic, PERRL, Ears normal, Moist mucous membranes, Pharynx benign - Neck Neck: Supple, no meningeal sign - Cardiac Cardiac: RRR, Strong equal pulses - Respiratory Respiratory: No respiratory distress, Clear bilaterally - Abdomen Abdomen: Normal bowel sounds, Soft, Non tender, Non distended - Derm Derm: Warm and dry, No rash - Extremities Extremities: No edema, No calf tenderness / cord - Neuro Neuro: Alert and oriented X 3, 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, No motor deficit, No sensory deficit, Normal speech Eye Opening: Spontaneous Motor: Obeys Commands Verbal: Oriented GCS Score: 15 - Psych Psych: Normal mood, Normal affect Results - Vitals Vitals: Vital Signs - 24 hr 04/13/21 04/13/21 04/13/21 10:28 10:34 12:29 Temperature 37.1 C Heart Rate 70 66 Respiratory 18 17 Rate Blood Pressure 128/79 150/80 H 143/92 H O2 Saturation 100 100 Oxygen O2 Source Room air - Labs Labs: Laboratory Tests 04/13/21 04/13/21 04/13/21 11:10 11:20 11:20 WBC 6.9 RBC 4.22 Hgb 12.4 Hct 37.6 MCV 89.1 MCH 29.4 MCHC 33.0 RDW 13.0 Plt Count 206 MPV 9.7 Neut # (Auto) 5.9 Lymph # (Auto) 0.7 L [place] # (Auto) 0.2 Eos # (Auto) 0.0 Baso # (Auto) 0.0 Absolute Nucleated RBC 0.00 Nucleated RBC % 0.0 Sodium 138 Potassium 3.3 L Chloride 102 Carbon Dioxide 24 Anion Gap 12.0 BUN 10 Creatinine 0.4 Estimated GFR (MDRD) 180 Glucose 118 H Calcium 9.6 Total Bilirubin 1.1 H AST 22 ALT 15 Alkaline Phosphatase 40 L Total Protein 8.0 Albumin 4.3 Globulin 3.7 Albumin/Globulin Ratio 1.2 Lipase 33 Urine Color YELLOW Urine Clarity CLEAR Urine pH 6.0 Ur Specific [place] 1.020 Urine Protein NEGATIVE Urine Glucose (UA) NEGATIVE Urine Ketones 40 H Urine Occult Blood MODERATE H Urine Nitrite NEGATIVE Urine Bilirubin NEGATIVE Urine Urobilinogen 0.2 (NORMAL) Ur Leukocyte Esterase NEGATIVE Urine RBC 6-10 H Urine WBC 0-3 Ur Squamous Epith Cells MOD Squamous H Urine Bacteria Few Ur Microscopic Review INDICATED Urine Culture Comments NOT INDICATED Urine HCG, Qual NEGATIVE PD MEDICAL DECISION MAKING - ED course Complexity details: reviewed results, considered differential, d/w patient ED course: Unclear etiology the patient's symptoms. Feels better after IV fluids here. No acute findings on laboratory testing. Tolerating p.o. without difficulty. Patient requests a note for work. Patient counseled regarding signs and symptoms for which I believe and urgent re-evaluation would be necessary. Patient with good understanding of and agreement to plan and is comfortable going home at this time This document was made in part using voice recognition software. While efforts are made to proofread this document, sound alike and grammatical errors may occur. Departure - Departure Disposition: 01 Home, Self Care Clinical Impression: Malaise Condition: Good Instructions: Fatigue Manage Follow-Up: your,doctor in 1 week [Other] Comments: Your testing does not show any acute abnormalities today. Please follow-up with your doctor for further care. Return if you worsen. Forms: Activity restrictions Discharge Date/Time: 04/13/21 12:30
[2021-04-13 12:30] VITALS: BP 143/92
== END 2021-04-13 12:30 | disposition home or self-care (01) ==
LOC: ED 10:25
DX: R53.81 Other malaise (principal); Z20.822 Contact with and (suspected) exposure to COVID-19
CPT/HCPCS: 36415; 80053; 81001; 81003; 81025; 83690; 85025; 87086; 99283; 99284

== ENCOUNTER 2021-04-24 09:23 | Outpatient (CLI) | payer MEDICAID ==
--- NOTE | 2021-04-26 08:20 | XRAY Report ---
PROCEDURE: Cervical Spine 2 View INDICATIONS: NECK PAIN TECHNIQUE: 3 view(s) of the cervical spine were acquired. COMPARISON: None. FINDINGS: C-SPINE: No acute, displaced fracture or malalignment. The vertebral body heights and intervertebral disc spaces are maintained. SOFT TISSUES: No prevertebral soft tissue thickening. IMPRESSION: 1.No acute osseous abnormality of the cervical spine. Reviewed by: Sami Ventura MD on 04/26/2021 8:19 AM PDT Approved by: Sami Ventura MD on 04/26/2021 8:19 AM PDT Station ID: [id number]
== END 2021-04-24 09:24 | disposition home or self-care (01) ==
LOC: DI.N 09:23
PROVIDERS: ATTEND Physician Assistant Medical
DX: M54.2 Cervicalgia (principal)

== ENCOUNTER 2021-05-06 08:04 | Outpatient (CLI) | payer MEDICAID ==
[2021-05-06 08:28] LABS: BASOPHILS # (AUTO) 0.1 10^3/uL (0.0-0.1); BASOPHILS % (AUTO) 1.1 %; EOSINOPHILS # (AUTO) 0.2 10^3/uL (0.0-0.7); EOSINOPHILS % (AUTO) 4.6 %; HGB - HEMOGLOBIN 11.6 g/dL (12.0-16.0); LYMPHOCYTES # (AUTO) 1.5 10^3/uL (1.5-3.5); LYMPHOCYTES % (AUTO) 32.5 %; MEAN CORPUSCULAR HEMOGLOBIN 29.4 pg (27.0-31.0); MEAN CORPUSCULAR HGB CONC 32.2 g/dL (32.0-36.0); MEAN CORPUSCULAR VOLUME 91.1 fL (81.0-99.0); MEAN PLATELET VOLUME 9.2 fL (7.9-10.8); MONOCYTES # (AUTO) 0.6 10^3/uL (0.0-1.0); MONOCYTES % (AUTO) 13.3 %; NEUTROPHILS # (AUTO) 2.2 10^3/uL (1.5-6.6); NEUTROPHILS % (AUTO) 48.5 %; PLT - PLATELET COUNT 175 10^3/uL (130-450); RED BLOOD COUNT 3.95 10^6/uL (4.20-5.40); RED CELL DISTRIBUTION WIDTH 13.1 % (12.0-15.0); WHITE BLOOD COUNT 4.6 x10^3/uL (4.8-10.8)
[2021-05-06 08:47] LABS: ALBUMIN 3.5 g/dL (3.2-5.5); ALBUMIN/GLOBULIN RATIO 1.1 (1.0-2.2); ALKALINE PHOSPHATASE 43 IU/L (42-121); ALT ALANINE AMINOTRANSFERASE 17 IU/L (10-60); AST ASPARTATE AMINOTRANSFERASE 26 IU/L (10-42); BILIRUBIN,TOTAL 0.6 mg/dL (0.2-1.0); BUN - BLOOD UREA NITROGEN 10 mg/dL (6-20); CALCIUM 8.7 mg/dL (8.5-10.3); CARBON DIOXIDE - CO2 28 mmol/L (21-32); CHLORIDE 104 mmol/L (101-111); CHOL/HDL RATIO 3.7 (<4.4); CHOLESTEROL 140 mg/dL; CREATININE 0.6 mg/dL (0.4-1.0); GFR - MDRD 112 (>89); GLUCOSE 91 mg/dL (70-100); HDL CHOLESTEROL 38 mg/dL; LDL CHOLESTEROL,CALCULATED 89 mg/dL; LDL/HDL RATIO 2.3 (<4.4); SODIUM 139 mmol/L (135-145); TOTAL PROTEIN 6.7 g/dL (6.7-8.2); TRIGLYCERIDES 67 mg/dL; VLDL CHOLESTEROL 13 mg/dL
[2021-05-06 08:58] LABS: THYROID STIMULATING HORMONE 1.52 uIU/mL (0.34-5.60)
== END 2021-05-06 08:05 | disposition home or self-care (01) ==
LOC: LAB 08:04
PROVIDERS: ATTEND Physician Assistant Medical
DX: Z00.00 Encounter for general adult medical examination without abnormal findings (principal); R60.9 Edema, unspecified; K44.9 Diaphragmatic hernia without obstruction or gangrene
CPT/HCPCS: 36415; 80053; 80061; 83721; 84443; 85025

== ENCOUNTER 2021-05-13 06:58 | Day surgery (SDC) | payer MEDICAID ==
[2021-05-13 07:22] LABS: HCG UR QUAL NEGATIVE
[2021-05-13] MEDS ORDERED: LACTATED RINGERS 1,000 ML IV ONE ×2 (07:25→09:57)
--- NOTE | 2021-05-13 08:19 | ANESTHESIA ---
Pre-Anesthesia VS, & Labs - Diagnosis Epigastric pain, persistent diarrhea - Procedure EGD and colonoscopy Vital Signs: Temp Pulse Resp BP Pulse Ox 36.5 C 84 18 123/77 98 05/13/21 07:26 05/13/21 07:26 05/13/21 07:26 05/13/21 07:26 05/13/21 07:26 Height: 5 ft 5 in Weight (kg): 105.9 kg Body Mass Index: 38.8 BMI Classification: Obese - NPO >8 hours - Is Patient ?: No Home Medications and Allergies Fluoxetine HCl [Prozac] 60 mg PO DAILY 09/16/20 Cholecalciferol [Vitamin D3] 5,000 unit ORAL DAILY 04/13/21 Ondansetron [Zuplenz] 4 mg PO PRN PRN 04/13/21 Allergies/Adverse Reactions: Allergies Allergy/AdvReac Type Severity Reaction Status Date / Time No Known Drug Allergies Allergy Verified 04/13/21 10:32 Anes History & Medical History - Anesthetic History Anesthesia Complications: reports: No previous complications - Medical History Cardiovascular: reports: None Pulmonary: reports: None Gastrointestinal: reports: Other (s/p gastric bypass) Urinary: reports: None Neuro: reports: None Musculoskeletal: reports: None Endocrine/Autoimmune: reports: None Blood Disorders: reports: None Skin: reports: None Smoking Status: Never smoker Psychosocial: reports: Depression, Anxiety - Surgical History General: reports: Cholecystectomy, Gastric surgery (Gastric bypass) Orthopedic: reports: Other Exam General: Alert, Oriented x3, Cooperative, No acute distress Dental: WNL Mouth Openin Fingerbreadth Neck Mobility: Normal Mallampati classification: II Thyromental Distance: 4-6 cm Mental/Cognitive Status: Alert/Oriented X3, Normal for patient Plan Anesthesia Type: Total IV Consent for Procedure(s) Verified and Reviewed: Yes Code Status: Attempt Resuscitation ASA classification: 2-Mild systemic disease Is this case an emergency?: No
[2021-05-13] MEDS ORDERED: MIDAZOLAM 2 MG/2 ML VIAL ONE (09:13)
[2021-05-13] MEDS ORDERED: PROPOFOL 500 MG/50 ML 500 MG/50 ML VIAL ONE (09:14)
[2021-05-13] MEDS ORDERED: PROPOFOL 200 MG/20 ML VIAL IVP ONE ×2 (09:14→09:52)
[2021-05-13 10:17] VITALS: BP 109/73
--- NOTE | 2021-05-13 12:56 | ANESTHESIA POST OP EVALUATION ---
Anesthesia Post Eval - Post Anesthesia Eval Vitals: Last Vital Signs Temp 36.5 C 05/13/21 09:54 Pulse 85 05/13/21 10:17 Resp 12 05/13/21 10:17 BP 109/73 05/13/21 10:17 Pulse Ox 97 05/13/21 10:17 CV Function Including HR & BP: Stable Pain Control: Satisfactory Nausea & Vomiting: Negative Mental Status: Baseline Respiratory Status: Airway Patent Hydration Status: Satisfactory Anesthesia Complications: None
== END 2021-05-13 06:59 | disposition home or self-care (01) ==
LOC: SDS 06:58
PROVIDERS: ATTEND Surgery
PROC: 0DBF8ZX Excision of Right Large Intestine, Via Natural or Artificial Opening Endoscopic, Diagnostic (ICD-10-PCS; principal; 2021-05-13 08:15)
PROC: 0DB68ZX Excision of Stomach, Via Natural or Artificial Opening Endoscopic, Diagnostic (ICD-10-PCS; 2021-05-13 08:15)
DX: K29.50 Unspecified chronic gastritis without bleeding (principal); K20.90 Esophagitis, unspecified without bleeding; R19.7 Diarrhea, unspecified; K64.8 Other hemorrhoids; K64.4 Residual hemorrhoidal skin tags; G47.33 Obstructive sleep apnea (adult) (pediatric); F41.9 Anxiety disorder, unspecified; F32.9 Major depressive disorder, single episode, unspecified; Z98.84 Bariatric surgery status; E66.9 Obesity, unspecified; Z68.38 Body mass index [BMI] 38.0-38.9, adult; Z20.822 Contact with and (suspected) exposure to COVID-19; Z79.899 Other long term (current) drug therapy; Z86.718 Personal history of other venous thrombosis and embolism
CPT/HCPCS: 43239; 45380; 81025; 81599; 83630; 87015; 87177; 87209; 87272; 87329; 87493; 87635; J7120; 87045; 87046

== ENCOUNTER 2021-05-27 12:22 | Outpatient (CLI) | payer MEDICAID ==
[2021-05-27] MEDS ORDERED: IOVERSOL 320 50 ML VIAL ONE (12:37)
[2021-05-27] MEDS ORDERED: IOVERSOL 320 100 ML VIAL IVP ONE ×2 (12:37→20:49)
--- NOTE | 2021-05-27 16:31 | CT Report ---
PROCEDURE: Abdomen/Pelvis W INDICATIONS: ABDOMINAL PAIN CONTRAST: IV CONTRAST: Optiray 320 ml: 100 PO CONTRAST: Optiray 320 ml50 TECHNIQUE: After the administration of oral and IV contrast, 5 mm thick sections acquired from the diaphragms to the symphysis. 5 mm thick coronal and sagittal reformats were acquired. For radiation dose reducti on, the following was used: automated exposure control, adjustment of mA and/or kV according to rui ent size. COMPARISON: CT abdomen pelvis 09/08/2020 FINDINGS: Image quality: Excellent. ABDOMEN: Lung bases: Lung bases are clear. Heart size is normal. Solid organs: Liver is mildly enlarged with steatosis. The spleen is normal in size and enhancement. Gallbladder has been removed. Biliary system is non dilated. Pancreas enhances normally. No adre nal nodules. Kidneys demonstrate normal size and enhancement, without hydronephrosis. Peritoneum and bowel: Bowel loops demonstrate normal wall thickness and caliber. No free fluid or a ir. Nodes and vessels: No retroperitoneal or mesenteric adenopathy by size criteria. Aorta and inferior vena cava are normal in size. Miscellaneous: No ventral hernias. PELVIS: Genitourinary: Bladder wall thickness is normal. Miscellaneous: No inguinal hernias or adenopathy. Bones: No suspicious bony lesions. No vertebral body compression fractures. IMPRESSION: 1. No visualized cause of pain. 2. Mild hepatic steatosis. Reviewed by: Neetu Dixon MD on 05/27/2021 4:29 PM PST Approved by: Neetu Dixon MD on 05/27/2021 4:29 PM PST Station ID: [id number]
[2021-05-27] MEDS ORDERED: IOVERSOL 320 50 ML VIAL PO ONE (20:50)
== END 2021-05-27 12:23 | disposition home or self-care (01) ==
LOC: DI 12:22
PROVIDERS: ATTEND Family Medicine
DX: K76.0 Fatty (change of) liver, not elsewhere classified (principal); R10.9 Unspecified abdominal pain
CPT/HCPCS: 74177; Q9967

== ENCOUNTER 2021-12-05 20:30 | Emergency (ER) | payer MEDICAID ==
[2021-12-05 20:48] VITALS: BP 145/88
--- NOTE | 2021-12-05 22:05 | ED Physician Documentation ---
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 No: Fall, Twist Timing - onset: How many weeks ago (she has noted some pains/muscles aches in both lower legs and right thigh for the past week. Increasing symptoms, with some feeling of swelling right lower leg in particular. No abrupt injury. History of DVT years ago. Called to make appt PMD and referred to ER for concern of repeat clot.) Timing - duration: Weeks (1) Timing - details: Gradual onset, Still present Worsened by: Moving, Other (walking) Associated symptoms: Swelling (feeling of some edema in right lower leg.), Other (aching pain in legs.). No: Weakness, Numbness Contributing factors: No: Anticoagulated Similar symptoms before: Diagnosis (similar symptoms to DVT in the past.) Recently seen: Not recently seen Review of Systems Constitutional: denies: Fever, Chills Nose: denies: Rhinorrhea / runny nose, Congestion Throat: denies: Sore throat Cardiac: denies: Chest pain / pressure, Palpitations Respiratory: denies: Dyspnea, Cough GI: denies: Abdominal Pain, Nausea, Vomiting, Diarrhea, Bloody / black stool Skin: denies: Rash, Lesions Musculoskeletal: reports: Extremity pain, Extremity swelling Neurologic: denies: Focal weakness, Numbness PD PAST MEDICAL HISTORY - Past Medical History Cardiovascular: None, Deep vein thrombosis Respiratory: None Neuro: None Endocrine/Autoimmune: None GI: Other (s/p gastric bypass) 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 : None HEENT: None Psych: Depression Musculoskeletal: None Derm: None - Past Surgical History Past Surgical History: Yes General: Cholecystectomy, Gastric surgery (Gastric bypass) Ortho: Other - Present Medications Home Medications: Ambulatory Orders Medication Instructions Recorded Confirmed Fluoxetine HCl [Prozac] 60 mg PO DAILY 09/16/20 05/06/21 Cholecalciferol [Vitamin D3] 5,000 unit ORAL DAILY 04/13/21 05/13/21 Ondansetron [Zuplenz] 4 mg PO PRN PRN 04/13/21 05/06/21 Acetaminophen [Acetaminophen Extra 500 mg PO QID PRN #50 tablet 12/05/21 Strength] HYDROcod/ACETAM 5/325 [[place] 5/325] 1 ea PO Q6H PRN #15 tablet 12/05/21 - Allergies Allergies/Adverse Reactions: Allergies Allergy/AdvReac Type Severity Reaction Status Date / Time No Known Drug Allergies Allergy Verified 12/05/21 20:48 - Social History Does the pt smoke?: No Smoking Status: Never smoker Does the pt drink ETOH?: No Does the pt have substance abuse?: No - Immunizations Immunizations are current?: Yes - POLST Patient has POLST: No PD ED PE NORMAL - Vitals Vital signs reviewed: Yes - General General: Alert and oriented X 3, No acute distress, Well developed/nourished - Neck Neck: Supple, no meningeal sign, No adenopathy - Cardiac Cardiac: RRR, No murmur - Respiratory Respiratory: Clear bilaterally - Abdomen Abdomen: Soft, Non tender - Back Back: No spinal TTP - Derm Derm: Normal color, Warm and dry, No rash - Extremities Extremities: Other (Mild edema in both ankles. Mild tenderness in the right lateral calf. No tenseness. Normal sensation to touch in both legs. Good dorsalis pedis pulse and capillary refill in toes.) - Neuro Neuro: Alert and oriented X 3, No motor deficit, No sensory deficit, Normal speech Results - Vitals Vitals: Vital Signs - 24 hr 12/05/21 20:45 Temperature 37.2 C Heart Rate 88 Respiratory 14 Rate Blood Pressure 145/88 H O2 Saturation 97 Oxygen O2 Source Room air - Labs Labs: Laboratory Tests 12/05/21 12/05/21 12/05/21 22:28 22:28 22:28 WBC 5.3 RBC 3.64 L Hgb 10.5 L Hct 32.5 L MCV 89.3 MCH 28.8 MCHC 32.3 RDW 13.3 Plt Count 175 MPV 9.1 Neut # (Auto) 2.3 Lymph # (Auto) 2.1 [place] # (Auto) 0.6 Eos # (Auto) 0.2 Baso # (Auto) 0.1 Absolute Nucleated RBC 0.00 Nucleated RBC % 0.0 ESR 16 Sodium 138 Potassium 3.7 Chloride 104 Carbon Dioxide 28 Anion Gap 6.0 BUN 10 Creatinine 0.6 Estimated GFR (MDRD) 112 Glucose 76 Calcium 8.9 Total Bilirubin 0.3 AST 20 ALT 12 Alkaline Phosphatase 44 Total Creatine Kinase 97 Total Protein 7.2 Albumin 3.7 Globulin 3.5 Albumin/Globulin Ratio 1.1 Lipase 34 - Rads (name of study) duplex U/S both lower legs Radiology: Prelim report reviewed (no DVT. ), See rad report PD MEDICAL DECISION MAKING - ED course Complexity details: reviewed results (No DVT nor elevated CK. Consider muscle strain or inflammation. Not on statin meds. ), considered differential, d/w patient ED course: Prior gastric bypass so will not do NSAIDs. Tylenol and pain meds PRN. Departure - Departure Disposition: Home, Self Care Clinical Impression: Pain and swelling of lower leg Qualifiers: Laterality: unspecified laterality Qualified Code(s): M79.669 - Pain in unspecified lower leg Condition: Stable Record reviewed to determine appropriate education?: Yes Instructions: ED Muscle Aching Follow-Up: Dorys Nevarez PA-C [Primary Care Provider] - Prescriptions: Acetaminophen [Acetaminophen Extra Strength] 500 mg PO QID PRN #50 tablet PRN Reason: Pain HYDROcod/ACETAM 5/325 [[place] 5/325] 1 ea PO Q6H PRN #15 tablet PRN Reason: Pain Comments: Your ultrasound is normal without any signs of blood clots. Your blood test do not show any signs of muscle breakdown or autoimmune type inflammatory disorder. Consideration could still be for muscle inflammation such as muscle soreness from activity or even inflammatory such as fibromyalgia. No diabetes noted nor kidney function/electrolyte abnormality. Given your gastric bypass, we do not want to use any NSAIDs. At this point I would suggest just some regular acetaminophen 3-4 times daily to help with pain. To that add hydrocodone/acetaminophen every 6-8 hours if needed for worse pain, and particularly at night for sleep etc. Follow-up with your primary care, call for an appointment, for further asse ssment of medication changes or other testing. I transmitted your prescription to [facility] pharmacy in [place]. I am prescribing a short course of narcotic pain medication for you. These are potentially dangerous and addictive medications that should be used carefully. These medications may constipate you. Take an [id number] stool softener such as docusate twice daily with plenty of water while taking these medications. If you go 24 hours without a bowel movement, take [id number] MiraLAX, per package instructions. Do not drink or drive while taking these medications. If you received narcotic or sedating medications while in the emergency department do not drive for 24 hours. Store this medication in a safe, secure place and out of reach of children. It is a violation of federal law to give or sell this medication to another person or to use in a manner other than prescribed. The ED will not refill narcotic prescriptions, including prescriptions lost or stolen. You can dispose of unwanted medications at the [facility]'s office or at several pharmacies such as [facility]. Discharge Date/Time: 12/05/21 23:40
[2021-12-05] MEDS ORDERED: KETOROLAC 30 MG/ML VIAL IM STA (22:18)
[2021-12-05 22:35] LABS: BASOPHILS # (AUTO) 0.1 10^3/uL (0.0-0.1); BASOPHILS % (AUTO) 0.9 %; EOSINOPHILS # (AUTO) 0.2 10^3/uL (0.0-0.7); EOSINOPHILS % (AUTO) 4.5 %; HCT - HEMATOCRIT 32.5 % (37.0-47.0); HGB - HEMOGLOBIN 10.5 g/dL (12.0-16.0); LYMPHOCYTES # (AUTO) 2.1 10^3/uL (1.5-3.5); LYMPHOCYTES % (AUTO) 39.9 %; MEAN CORPUSCULAR HEMOGLOBIN 28.8 pg (27.0-31.0); MEAN CORPUSCULAR HGB CONC 32.3 g/dL (32.0-36.0); MEAN CORPUSCULAR VOLUME 89.3 fL (81.0-99.0); MEAN PLATELET VOLUME 9.1 fL (7.9-10.8); MONOCYTES # (AUTO) 0.6 10^3/uL (0.0-1.0); MONOCYTES % (AUTO) 11.7 %; NEUTROPHILS # (AUTO) 2.3 10^3/uL (1.5-6.6); NEUTROPHILS % (AUTO) 42.8 %; PLT - PLATELET COUNT 175 10^3/uL (130-450); RED BLOOD COUNT 3.64 10^6/uL (4.20-5.40); RED CELL DISTRIBUTION WIDTH 13.3 % (12.0-15.0); WHITE BLOOD COUNT 5.3 x10^3/uL (4.8-10.8)
[2021-12-05 22:48] LABS: ALBUMIN 3.7 g/dL (3.2-5.5); BILIRUBIN,TOTAL 0.3 mg/dL (0.2-1.0); CALCIUM 8.9 mg/dL (8.5-10.3); CREATININE 0.6 mg/dL (0.4-1.0); POTASSIUM 3.7 mmol/L (3.5-5.0); TOTAL PROTEIN 7.2 g/dL (6.7-8.2)
[2021-12-05 22:49] LABS: ALBUMIN/GLOBULIN RATIO 1.1 (1.0-2.2)
[2021-12-05] MEDS ORDERED: HYDROcod/ACET 5/325 Prepack 4 PO STA (23:26)
--- NOTE | 2021-12-05 23:53 | Ultrasound Report ---
PROCEDURE: Duplex Ext Veins Bilateral INDICATIONS: CACHORRO LAWSON TECHNIQUE: Real-time imaging, as well as color and pulse Doppler interrogation, were performed of the deep veins of both legs from the inguinal ligament to the popliteal fossa. COMPARISON: FINDINGS: The deep veins are normally compressible, and free of intraluminal thrombus. Color and pu lse Doppler demonstrate normal phasic intravascular flow. There is normal augmentation response to d istal compression maneuver. IMPRESSION: 1. No evidence of deep venous thrombosis in the right or left lower extremity. Reviewed by: Marvin Townsend MD on 12/05/2021 11:56 PM PDT Approved by: Marvin Townsend MD on 12/05/2021 11:56 PM PDT Station ID: [id number]
== END 2021-12-05 23:40 | disposition home or self-care (01) ==
LOC: ED 20:30
DX: M79.605 Pain in left leg (principal); M79.604 Pain in right leg
CPT/HCPCS: 36415; 80053; 82550; 83690; 85025; 85651; 93970; 96372; 99283

== ENCOUNTER 2022-06-26 12:35 | Emergency (ER) | payer MEDICAID ==
[2022-06-26 12:44] VITALS: BP 140/90
--- NOTE | 2022-06-26 14:24 | ED Physician Documentation ---
PD HPI HEENT - Stated complaint Stated Complaint: FACIAL SWELLING - Chief complaint Chief Complaint: Heent - History obtained from History obtained from: Patient - History of Present Illness Timing - onset: How many days ago (2-3) Timing - duration: Days Timing - details: Gradual onset, Still present Location: Tooth (left sided lower tooth pain with gum swelling.) Improves: No: Medication Worsens: Swalllowing, Temperatures Associated symptoms: Facial swelling. No: Fever Similar symptoms before: Diagnosis (dental infections) Recently seen: Not recently seen Review of Systems Constitutional: denies: Fever, Chills Throat: reports: Dental pain / toothache. 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 HEENT: None Psych: Depression Musculoskeletal: None Derm: None - Past Surgical History Past Surgical History: Yes General: Cholecystectomy, Gastric surgery (Gastric bypass) Ortho: Other - Present Medications Home Medications: Ambulatory Orders Medication Instructions Recorded Confirmed Fluoxetine HCl [Prozac] 60 mg PO DAILY 09/16/20 05/06/21 Cholecalciferol [Vitamin D3] 5,000 unit ORAL DAILY 04/13/21 05/13/21 Ondansetron [Zuplenz] 4 mg PO PRN PRN 04/13/21 05/06/21 Acetaminophen [Acetaminophen Extra 500 mg PO QID PRN #50 tablet 12/05/21 Strength] HYDROcod/ACETAM 5/325 [[place] 5/325] 1 ea PO Q6H PRN #15 tablet 12/05/21 Chlorhexidine Gluconate [Peridex] 15 ml MM TID #118 ml 06/26/22 HYDROcod/ACETAM 5/325 [[place] 5/325] 1 ea PO Q6H PRN #18 tablet 06/26/22 clindamycin HCL [Clindamycin HCl] 300 mg PO TID 7 Days #20 cap 06/26/22 - Allergies Allergies/Adverse Reactions: Allergies Allergy/AdvReac Type Severity Reaction Status Date / Time No Known Drug Allergies Allergy Verified 06/26/22 12:37 - Social History Does the pt smoke?: No Smoking Status: Never smoker Does the pt drink ETOH?: No Does the pt have substance abuse?: No - Immunizations Immunizations are current?: Yes - POLST Patient has POLST: No PD ED PE NORMAL - Vitals Vital signs reviewed: Yes - General General: Alert and oriented X 3, No acute distress (but does appear in pain due to tooth), Well developed/nourished - HEENT HEENT: No: Dentition benign (left lower tooth with tenderness to percussion, gum swelling but no fluctuance. ) - Neck Neck: Supple, no meningeal sign, No adenopathy Results - Vitals Vitals: Oxygen O2 Source Room air PD Medical Decision Making - ED course Complexity details: reviewed old records (prior visits to ER and [facility] form.), considered differential (appears dental infection without drainable abscess. ), d/w patient Departure - Departure Disposition: 01 Home, Self Care Clinical Impression: Infected dental caries, Pain, dental Condition: Stable Record reviewed to determine appropriate education?: Yes Instructions: ED Abscess Dental Follow-Up: Dorys Nevarez PA-C [Primary Care Provider] - Prescriptions: clindamycin HCL [Clindamycin HCl] 300 mg PO TID 7 Days #20 cap HYDROcod/ACETAM 5/325 [[place] 5/325] 1 ea PO Q6H PRN #18 tablet PRN Reason: Pain Chlorhexidine Gluconate [Peridex] 15 ml MM TID #118 ml Comments: This does look and sound likely dental infection and we can treat her with clindamycin antibiotic 3 times daily for a week along with adding Tylenol or hydrocodone/acetaminophen as needed for pains. Also cleanse the dental area and mouth with chlorhexidine antiseptic solution twice daily. Recheck if not improving well over the next several days. Follow-up with a dentist as soon as able for more definitive treatment. I sent your prescriptions to [facility] pharmacy in [place]. I am prescribing a short course of narcotic pain medication for you. These are potentially dangerous and addictive medications that should be used carefully. These medications may constipate you. Take an [id number]-[id number] stool softener such as docusate twice daily with plenty of water while taking these medications. If you go 24 hours without a bowel movement, take [id number] MiraLAX, per package instructions. Do not drink or drive while taking these medications. If you received narcotic or sedating medications while in the emergency department do not drive for 24 hours. Store this medication in a safe, secure place and out of reach of children. It is a violation of federal law to give or sell this medication to another person or to use in a manner other than prescribed. The ED will not refill narcotic prescriptions, including prescriptions lost or stolen. You can dispose of unwanted medications at the [facility]'s office or at several pharmacies such as [facility]. Discharge Date/Time: 06/26/22 14:51
[2022-06-26] MEDS ORDERED: CLINDAMYCIN 150 MG CAPSULE PO STA (14:34)
[2022-06-26] MEDS ORDERED: ACETAMINOPHEN 325 MG TABLET PO STA (14:34)
== END 2022-06-26 14:51 | disposition home or self-care (01) ==
LOC: ED 12:35
DX: K02.9 Dental caries, unspecified (principal)
CPT/HCPCS: 99283; A9270

== ENCOUNTER 2022-07-03 07:39 | Outpatient (CLI) | payer MEDICAID | END 2022-07-03 07:40 | disposition home or self-care (01) | LOC: LAB 07:39 | PROVIDERS: ATTEND Nurse Practitioner | DX: D64.9 Anemia, unspecified (principal) | CPT/HCPCS: 82728; 83540; 84466 ==

== ENCOUNTER 2022-07-04 07:47 | Outpatient (CLI) | payer MEDICAID ==
[2022-07-04 08:32] LABS: BASOPHILS % (AUTO) 0.7 %; EOSINOPHILS # (AUTO) 0.2 10^3/uL (0.0-0.7); EOSINOPHILS % (AUTO) 3.4 %; HCT - HEMATOCRIT 35.1 % (37.0-47.0); HGB - HEMOGLOBIN 11.3 g/dL (12.0-16.0); LYMPHOCYTES # (AUTO) 1.6 10^3/uL (1.5-3.5); LYMPHOCYTES % (AUTO) 28.7 %; MEAN CORPUSCULAR HEMOGLOBIN 27.5 pg (27.0-31.0); MEAN CORPUSCULAR HGB CONC 32.2 g/dL (32.0-36.0); MEAN CORPUSCULAR VOLUME 85.4 fL (81.0-99.0); MEAN PLATELET VOLUME 9.3 fL (7.9-10.8); MONOCYTES # (AUTO) 0.6 10^3/uL (0.0-1.0); NEUTROPHILS # (AUTO) 3.2 10^3/uL (1.5-6.6); PLT - PLATELET COUNT 240 10^3/uL (130-450); RED BLOOD COUNT 4.11 10^6/uL (4.20-5.40); RED CELL DISTRIBUTION WIDTH 12.9 % (12.0-15.0); WHITE BLOOD COUNT 5.6 x10^3/uL (4.8-10.8)
[2022-07-04 08:52] LABS: ALBUMIN 3.8 g/dL (3.2-5.5); ALKALINE PHOSPHATASE 40 IU/L (42-121); ALT ALANINE AMINOTRANSFERASE 14 IU/L (10-60); AST ASPARTATE AMINOTRANSFERASE 22 IU/L (10-42); BILIRUBIN,TOTAL 0.6 mg/dL (0.2-1.0); BUN - BLOOD UREA NITROGEN 15 mg/dL (6-20); CALCIUM 9.1 mg/dL (8.5-10.3); CARBON DIOXIDE - CO2 26 mmol/L (21-32); CHLORIDE 103 mmol/L (101-111); CHOL/HDL RATIO 3.6 (<4.4); CHOLESTEROL 185 mg/dL; CK- CREATINE KINASE 72 IU/L (22-269); CREATININE 0.5 mg/dL (0.4-1.0); GFR - MDRD 137 (>89); GLUCOSE 90 mg/dL (70-100); HDL CHOLESTEROL 52 mg/dL; LDL CHOLESTEROL,CALCULATED 120 mg/dL; LDL/HDL RATIO 2.3 (<4.4); POTASSIUM 3.9 mmol/L (3.5-5.0); SODIUM 138 mmol/L (135-145); TOTAL PROTEIN 7.7 g/dL (6.7-8.2); TRIGLYCERIDES 63 mg/dL; VLDL CHOLESTEROL 13 mg/dL
[2022-07-04 09:01] LABS: THYROID STIMULATING HORMONE 1.39 uIU/mL (0.34-5.60)
== END 2022-07-04 07:48 | disposition home or self-care (01) ==
LOC: LAB 07:47
PROVIDERS: ATTEND Nurse Practitioner
DX: R53.83 Other fatigue (principal); Z13.220 Encounter for screening for lipoid disorders; R25.2 Cramp and spasm; R60.0 Localized edema; Z86.718 Personal history of other venous thrombosis and embolism
CPT/HCPCS: 36415; 80053; 80061; 82550; 83721; 84443; 85025; 85379

== ENCOUNTER 2022-07-17 11:36 | Outpatient (CLI) | payer MEDICAID ==
[2022-07-17 11:51] LABS: BASOPHILS # (AUTO) 0.1 10^3/uL (0.0-0.1); BASOPHILS % (AUTO) 0.9 %; EOSINOPHILS # (AUTO) 0.2 10^3/uL (0.0-0.7); EOSINOPHILS % (AUTO) 3.3 %; HCT - HEMATOCRIT 34.2 % (37.0-47.0); HGB - HEMOGLOBIN 10.9 g/dL (12.0-16.0); LYMPHOCYTES # (AUTO) 1.8 10^3/uL (1.5-3.5); LYMPHOCYTES % (AUTO) 25.4 %; MEAN CORPUSCULAR HEMOGLOBIN 27.5 pg (27.0-31.0); MEAN CORPUSCULAR HGB CONC 31.9 g/dL (32.0-36.0); MEAN CORPUSCULAR VOLUME 86.1 fL (81.0-99.0); MEAN PLATELET VOLUME 9.1 fL (7.9-10.8); MONOCYTES # (AUTO) 0.7 10^3/uL (0.0-1.0); MONOCYTES % (AUTO) 9.8 %; NEUTROPHILS # (AUTO) 4.2 10^3/uL (1.5-6.6); NEUTROPHILS % (AUTO) 60.5 %; PLT - PLATELET COUNT 213 10^3/uL (130-450); RED BLOOD COUNT 3.97 10^6/uL (4.20-5.40); RED CELL DISTRIBUTION WIDTH 12.9 % (12.0-15.0); WHITE BLOOD COUNT 6.9 x10^3/uL (4.8-10.8)
[2022-07-17 12:09] LABS: ALBUMIN 3.9 g/dL (3.2-5.5); ALBUMIN/GLOBULIN RATIO 1.1 (1.0-2.2); ALKALINE PHOSPHATASE 43 IU/L (42-121); ALT ALANINE AMINOTRANSFERASE 15 IU/L (10-60); AST ASPARTATE AMINOTRANSFERASE 22 IU/L (10-42); BILIRUBIN,TOTAL 0.5 mg/dL (0.2-1.0); BUN - BLOOD UREA NITROGEN 14 mg/dL (6-20); CALCIUM 8.9 mg/dL (8.5-10.3); CARBON DIOXIDE - CO2 25 mmol/L (21-32); CHLORIDE 102 mmol/L (101-111); CHOL/HDL RATIO 3.6 (<4.4); CHOLESTEROL 171 mg/dL; CK- CREATINE KINASE 94 IU/L (22-269); CREATININE 0.5 mg/dL (0.4-1.0); GFR - MDRD 137 (>89); GLUCOSE 114 mg/dL (70-100); HDL CHOLESTEROL 47 mg/dL; LDL CHOLESTEROL,CALCULATED 104 mg/dL; LDL/HDL RATIO 2.2 (<4.4); SODIUM 136 mmol/L (135-145); TOTAL PROTEIN 7.5 g/dL (6.7-8.2); TRIGLYCERIDES 98 mg/dL; VLDL CHOLESTEROL 20 mg/dL
[2022-07-17 12:21] LABS: THYROID STIMULATING HORMONE 1.22 uIU/mL (0.34-5.60)
[2022-07-17 12:27] LABS: FERRITIN 7.1 ng/mL (11.0-306.8)
[2022-07-17 12:57] LABS: ESTIMATED AVERAGE GLUCOSE 120 mg/dL (70-100); HEMOGLOBIN A1c% 5.8 % (4.27-6.07)
--- NOTE | 2022-07-18 10:11 | Ultrasound Report ---
PROCEDURE: Duplex Ext Veins Left INDICATIONS: PEDEL EDEMA TECHNIQUE: Real-time imaging, as well as color and pulse Doppler interrogation, were performed of the lower extr emity deep veins from the inguinal ligament to the popliteal fossa. COMPARISON: None. FINDINGS: The deep veins are normally compressible, and free of intraluminal thrombus. Color and pu lse Doppler demonstrate normal phasic intraluminal flow. There is normal augmentation response to di stal compression maneuver. IMPRESSION: No evidence of DVT in visualized left lower extremity veins. Reviewed by: Eddy Berrios MD on 07/18/2022 10:10 AM [facility] Approved by: Eddy Berrios MD on 07/18/2022 10:10 AM [facility] Station ID: [id number]
== END 2022-07-17 11:37 | disposition home or self-care (01) ==
LOC: DI 11:36
PROVIDERS: ATTEND Nurse Practitioner
DX: R60.0 Localized edema (principal); D64.9 Anemia, unspecified; Z98.84 Bariatric surgery status; R53.83 Other fatigue; E66.9 Obesity, unspecified; Z13.220 Encounter for screening for lipoid disorders; R25.2 Cramp and spasm; Z86.718 Personal history of other venous thrombosis and embolism
CPT/HCPCS: 36415; 80053; 80061; 82550; 82728; 83036; 83721; 84443; 85025; 85379

== ENCOUNTER 2022-08-14 10:03 | Outpatient (CLI) | payer MEDICAID ==
[2022-08-14 10:39] VITALS: BP 100/60
--- NOTE | 2022-08-14 10:39 | SLEEP CARE CONSULTATION ---
Information from patient questionnaire entered by Roya Le. I have reviewed and concur with the information entered by Roya Le. This document represents the service I personally performed and the decisions made by me, Samia Ramirez ARNP. History of Present Illness Service Date and Time: 08/14/2022 1003 Previous diagnosis: Mild, Obstructive Sleep Apnea-Hypopnea Syndrome AHI: 9.1 Reason for follow up: annual (LAST SEEN 12/2020) Equipment type: CPAP (PT NEVER GOT CPAP) Prior sleep studies: Yes Year and Where: 2020 - [facility]; 2013 - [facility] [place] [facility] Type of Sleep Study: Polysomnography HPI additional information: SYLVIA VAZQUEZ was diagnosed to have mild, AHI 9.1, obstructive sleep apnea- hypopnea syndrome and returned today for CPAP therapy annual follow-up. She states she did not get CPAP. The patient tells me that she normally goes to bed around 11 pm, and it takes her approximately 10 minutes to fall asleep. She has been told that she snores loudly and irregularly at night. She has been observed to stop breathing in her sleep. Her bed partner can still sleep in the same bed. She can recall waking up on the average of 10 times during the night. Most of the time she wakes up because of feeling uncomfortable. She has occasionally awakened for her own snoring, choking, and having to gasp for air. There is a lot of tossing and turning in her sleep. Generally there is no recollection of dreams. She usually wakes up at [phone] and does not feel refreshed. She usually does have a morning headache. During the day she complains of feeling sleepy and fatigued. She has never fallen asleep while driving nor has any accident due to sleepiness. She usually naps for about 30-90 minutes during the day. If she naps, upon falling asleep during the day she denies having vivid dreams. She denies having impaired concentration during the day. There is no somniloquy (sleep talking) or somnambulism (sleep walking). She has never experienced sleep paralysis, cataplexy, or symptoms of restless leg syndrome. Sleep Study - Results Type of Sleep Study: Polysomnography Prior sleep studies: Yes Year and Where: 2020 - [facility]; 2013 - [facility] [place] Subjective Initial [place] Sleepiness Scale score: 15 (in 2014) Current [place] Sleepiness Scale score: 18 (08/14/22) Allergies and Home Medications Known drug allergies: No Drug allergies reviewed: Yes Home medication list reviewed: Yes (Prozac 60 mg; Sumatriptan) Review of Systems Review of systems same as previous: Yes (no changes) Physical Exam Vital signs obtained and entered by: ROYA Cardenas MA Blood Pressure: 100/60 (LEFT ARM) Cuff size: long Heart Rate: 78 O2 Saturation: 99 Height: 5 ft 5 in Weight: 286 lb 12.8 oz Body Mass Index: 47.7 BMI Classification: Morbidly Obese Impression and Plan 1. Suspected Obstructive Sleep Apnea-Hypopnea Syndrome, as previously diagnosed and as suggested by a history of loud and irregular snoring, observed cessation of breath while asleep, morning headache, frequent awakening during the night, unrefreshed sleep, and excessive daytime sleepiness. Patient had a sleep study in 2020 but the DME that was to set her up with a CPAP got back logged and she did not get a CPAP. It has been long enough that I recommend proceeding to polysomnography to confirm the diagnosis and to assess severity. I obtained agreement to proceed. The pathophysiology of obstructive sleep apnea-hypopnea syndrome was discussed with the patient and health risks of cardiovascular and cerebrovascular disease if not treated. 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 Patient agreed to plan. * Schedule polysomnography * Avoid long distance driving or driving when feeling sleepy. * Avoid alcohol, sedative and muscle relaxant around bedtime. * Attempt to lose weight. * Review instructions provided by trained office staff on how to prepare for the sleep study. * Return for follow-up after sleep study completed. Counseling Topics: Weight loss health impact Visit Type: In Office Time Spent with Patient (minutes): 20 Provider Statement: I spent 100% of the Face to Face Visit with the patient with greater than 50% spent counseling the patient and coordination of care.
== END 2022-08-14 10:04 | disposition home or self-care (01) ==
LOC: SC 10:03
PROVIDERS: ATTEND Nurse Practitioner Family
DX: G47.33 Obstructive sleep apnea (adult) (pediatric) (principal); E66.01 Morbid (severe) obesity due to excess calories; Z68.42 Body mass index [BMI] 45.0-49.9, adult
CPT/HCPCS: 99212; 99213

== ENCOUNTER 2022-09-18 09:05 | Outpatient (CLI) | payer MEDICAID | END 2022-09-18 09:06 | disposition home or self-care (01) | LOC: SC 09:05 | PROVIDERS: ATTEND Nurse Practitioner Family | DX: G47.33 Obstructive sleep apnea (adult) (pediatric) (principal); R09.02 Hypoxemia; R00.0 Tachycardia, unspecified | CPT/HCPCS: 95806 ==

== ENCOUNTER 2022-10-13 15:19 | Emergency (ER) | payer MEDICAID ==
--- NOTE | 2022-10-13 15:26 | ED Physician Documentation ---
PD HPI LOWER EXT INJURY - Stated complaint Stated Complaint: LT LEG PX - History obtained from History obtained from: Patient - History of Present Illness PD HPI LOW EXT INJURY LOCATION: Left, Ankle, Foot Type of injury: Other (The patient denies abrupt injury. 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 She has noted several days or more of medial ankle and proximal foot pain on the left after being on it for the day. Tender locally. No redness or swelling.). No: Fall, Twist Timing - onset: How many days ago (few) Timing - duration: Days (few) Timing - details: Abrupt onset, Waxing and waning Worsened by: Moving (Primarily dorsiflexion and eversion hurts it passively. Walking in general hurts.), Palpating (local tenderness medial proximal foot. No calf tenderness.) Associated symptoms: No: Weakness, Numbness, Swelling, Discolored Similar symptoms before: Has not had sx before Review of Systems Constitutional: denies: Fever, Chills Skin: denies: Rash, Lesions Musculoskeletal: reports: Extremity swelling (chronic mild left lower leg and ankle edema s/p prior DVT left leg. 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 : None HEENT: None Psych: Depression Musculoskeletal: None Derm: None - Past Surgical History Past Surgical History: Yes General: Cholecystectomy, Gastric surgery (Gastric bypass) Ortho: Other - Present Medications Home Medications: Ambulatory Orders Medication Instructions Recorded Confirmed Fluoxetine HCl [Prozac] 60 mg PO DAILY 09/16/20 08/14/22 Cholecalciferol [Vitamin D3] 5,000 unit ORAL DAILY 04/13/21 08/14/22 Ondansetron [Zuplenz] 4 mg PO PRN PRN 04/13/21 08/14/22 Acetaminophen [Acetaminophen Extra 500 mg PO QID PRN #50 tablet 12/05/21 08/14/22 Strength] HYDROcod/ACETAM 5/325 [[place] 5/325] 1 ea PO Q6H PRN #15 tablet 12/05/21 08/14/22 Chlorhexidine Gluconate [Peridex] 15 ml MM TID #118 ml 06/26/22 08/14/22 HYDROcod/ACETAM 5/325 [[place] 5/325] 1 ea PO Q6H PRN #18 tablet 06/26/22 08/14/22 clindamycin HCL [Clindamycin HCl] 300 mg PO TID 7 Days #20 cap 06/26/22 08/14/22 Fluoxetine HCl [Prozac] See Rx Instructions .ROUTE .COMPLEX 08/14/22 08/14/22 dexAMETHasone [Decadron] 4 mg PO DAILY #5 tablet 10/13/22 - Allergies Allergies/Adverse Reactions: Allergies Allergy/AdvReac Type Severity Reaction Status Date / Time No Known Drug Allergies Allergy Verified 10/13/22 15:24 - Social History Does the pt smoke?: No Smoking Status: Never smoker Does the pt drink ETOH?: No Does the pt have substance abuse?: No - Immunizations Immunizations are current?: Yes - POLST Patient has POLST: No PD ED PE NORMAL - Vitals Vital signs reviewed: Yes - General General: Alert and oriented X 3, Well developed/nourished - Derm Derm: Normal color, Warm and dry - Extremities Extremities: Other (The medial proximal left foot just distal to the medial malleolus shows local tenderness without any redness, swelling, skin lesions. No tenderness or effusion at the malleolus itself. Achilles is firm and nontender. Base of the great toe is nontender.) - Neuro Neuro: No motor deficit, No sensory deficit Results - Vitals Vitals: Vital Signs - 24 hr 10/13/22 15:24 Temperature 36.5 C Heart Rate 88 Respiratory 18 Rate Blood Pressure 134/71 H O2 Saturation 100 Oxygen O2 Source Room air - Rads (name of study) left foot Relevant Findings:: Prelim report reviewed, EMP independent interpretation of test, See rad report PD Medical Decision Making - ED course Complexity details: reviewed results (no obvious bony lesions in that area. A calcaneal spur, which I told patient about. Presume tendonitis of the area, likely corresponds to peroneus brevus insertion. ), considered differential (The patient has had gradual onset and undulating symptoms on the medial foot. No redness or swelling. No history of gout. She does walk a lot at work and is large BMI so consider just tendinitis of the area. Can get an x-ray to evaluate bony lesions.), d/w patient Departure - Departure Disposition: 01 Home, Self Care Clinical Impression: Foot tendinitis Condition: Stable Record reviewed to determine appropriate education?: Yes Instructions: ED Sprain Foot Follow-Up: Briseyda Wall ARNP [Primary Care Provider] - Prescriptions: dexAMETHasone [Decadron] 4 mg PO DAILY #5 tablet Comments: Your x-ray does not show any abnormalities in the area that is hurting. You have a small spur on the heel which is not in this location of tenderness. I think is just an incidental finding. Your area of tenderness and hurting with the motions suggests an inflammation of the tendon or ligament through the foot (tendinitis). This can be from repetitive irritation such as walking and increased mobility. I would suggest using the Aircast or cast boot to reduce motion through the foot and ankle and allow it opportunity for healing. Add anti-inflammatories daily for the next 5 days or so. I sent it to [facility]. For the pain of it, use Tylenol 650 mg 4 times daily regularly for the next several days to week. Recheck if not improving well over the next several days to a week or so. Follow-up with your primary care or orthopedic office for other treatments if needed. Discharge Date/Time: 10/13/22 17:01
[2022-10-13 15:27] VITALS: BP 134/71
[2022-10-13] MEDS ORDERED: ACETAMINOPHEN 500 MG TABLET PO STA (15:58)
[2022-10-13] MEDS ORDERED: DEXAMETHASONE 10 MG/ML VIAL PO STA (15:59)
[2022-10-13] MEDS ORDERED: CHERRY SYRUP 10 ML UDC PO ONE (15:59)
--- NOTE | 2022-10-13 16:20 | XRAY Report ---
PROCEDURE: Foot 3 View LT INDICATIONS: medial proximal foot pain TECHNIQUE: 3 views of the foot were acquired. COMPARISON: None. FINDINGS: Bones: No fractures or dislocations. No suspicious bony lesions. Small plantar and dorsal calcaneal enthesophytes are seen. Soft tissues: No suspicious soft tissue calcifications or masses. IMPRESSION: No left foot fracture or dislocation. Small calcaneal enthesophytes. Reviewed by: Eddy Berrios MD on 10/13/2022 4:19 PM PDT Approved by: Eddy Berrios MD on 10/13/2022 4:19 PM PDT Station ID: [id number]
== END 2022-10-13 17:01 | disposition home or self-care (01) ==
LOC: ED 15:19
DX: M77.8 Other enthesopathies, not elsewhere classified (principal); Z79.899 Other long term (current) drug therapy
CPT/HCPCS: 73630; 99283; A9270

== ENCOUNTER 2022-10-16 08:00 | Outpatient (CLI) | payer MEDICAID ==
--- NOTE | 2022-10-16 11:28 | XRAY Report ---
PROCEDURE: Ankle 3 View LT INDICATIONS: LEFT ANKLE PAIN TECHNIQUE: 3 views of the ankle were acquired. COMPARISON: None. FINDINGS: Bones: No fractures or dislocations. Ankle mortise is normally aligned. No suspicious bony lesions . Soft tissues: No tibiotalar joint effusion. Achilles tendon appears normal. IMPRESSION: No acute bony abnormality. If there remains a high clinical concern for fracture, consider cross-sect ional imaging now. If pain persists, consider repeat x-ray in 10-14 days or cross-sectional imaging. Reviewed by: Oswaldo Sánchez on 10/16/2022 11:26 AM PDT Approved by: Oswaldo Sánchez on 10/16/2022 11:26 AM PDT Station ID: [id number]
== END 2022-10-16 23:59 | disposition home or self-care (01) ==
LOC: DI.WOS 08:00
PROVIDERS: ATTEND Physician Assistant Surgical
DX: M25.572 Pain in left ankle and joints of left foot (principal)

== ENCOUNTER 2023-02-08 18:19 | Emergency (ER) | payer MEDICAID ==
[2023-02-08 18:25] VITALS: O2SAT 100
[2023-02-08] MEDS ORDERED: LORazepam 2 MG/ML VIAL IM STA (18:29)
[2023-02-08] MEDS ORDERED: HYDROmorphone 1 MG/ML CARPUJECT IM STA (18:29)
--- NOTE | 2023-02-08 18:30 | ED Physician Documentation ---
PD HPI BACK PAIN - Stated complaint Stated Complaint: PANIC ATTACK - Chief complaint Chief Complaint: Back Pain - History obtained from History obtained from: Patient - Additional information Additional information: 37-year-old woman with chronic intermittent back pain. She was lifting furniture earlier today and developed low back pain. It is severe but nonradiating. Denies weakness, numbness, tingling, saddle anesthesia, fevers, or incontinence. It is in the same place she has had back pain in the past. This set off a panic attack. She has chronic anxiety for which she takes an SSRI but in the past has taken Ativan but states it has been about 5 years since she needed that. 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 : None HEENT: None Psych: Depression Musculoskeletal: None Derm: None - Past Surgical History Past Surgical History: Yes General: Cholecystectomy, Gastric surgery (Gastric bypass) Ortho: Other - Present Medications Home Medications: Ambulatory Orders Medication Instructions Recorded Confirmed Fluoxetine HCl [Prozac] 60 mg PO DAILY 09/16/20 02/08/23 Furosemide [Lasix] 40 mg PO DAILY 02/08/23 02/08/23 LORazepam [Ativan] 1 mg PO TID PRN #7 tablet 02/08/23 Potassium Chloride [K-Dur] 20 meq PO DAILY 02/08/23 02/08/23 Sumatriptan Succinate [Imitrex] 25 mg PO PRN 02/08/23 - Allergies Allergies/Adverse Reactions: Allergies Allergy/AdvReac Type Severity Reaction Status Date / Time No Known Drug Allergies Allergy Verified 02/08/23 18:21 - Social History Does the pt smoke?: No Smoking Status: Never smoker Does the pt drink ETOH?: No Does the pt have substance abuse?: No - Immunizations Immunizations are current?: Yes - POLST Patient has POLST: No PD ED PE NORMAL - Vitals Vital signs reviewed: Yes - General General: Alert and oriented X 3, Other (She is tearful and panicky) - Back Back: No spinal TTP - Extremities Extremities: Other (The patient has equal and normal Achilles and patellar reflexes bilaterally. Normal sensation in all areas of the legs. Patient denies saddle anesthesia. Normal strength in flexion-extension at the ankles, knees, and flexion of the hips.) - Neuro Neuro: Alert and oriented X 3, Normal speech Results - Vitals Vitals: Vital Signs - 24 hr 02/08/23 02/08/23 18:21 19:48 Temperature 36.5 C Heart Rate 115 H 73 Respiratory 16 16 Rate Blood Pressure 127/77 158/75 H O2 Saturation 100 100 Oxygen O2 Source Room air PD Medical Decision Making - ED course ED course: This patient has seemingly uncomplicated musculoskeletal back pain. The patient has no "red flags." Specifically denies IV drug use, fevers, incontinence, saddle anesthesia. Spinal epidural abscess was considered, given that the patient has no fever, is not diabetic, has no spinal tenderness, does not use IV drugs, and has no bilateral neurologic symptoms, the diagnosis of spinal epidural abscess is considered exceedingly unlikely. For that and the panic attack she received 1 mg of IM Dilaudid and 1 mg of IM Ativan. Subsequent to that she was feeling better, resting calmly but easily arousable without overt signs of pain. Departure - Departure Disposition: 01 Home, Self Care Clinical Impression: Panic attack Back pain Qualifiers: Back pain location: low back pain Chronicity: acute Back pain laterality: midline Sciatica presence: without sciatica Qualified Code(s): M54.50 - Low back pain, unspecified Instructions: ED Low Back Pain Injury, ED Panic Attack Prescriptions: LORazepam [Ativan] 1 mg PO TID PRN #7 tablet PRN Reason: Anxiety Comments: I sent a prescription electronically to [facility] in [place]. You were seen today for an exacerbation of chronic low back pain that brought on a panic attack. I am writing you for some lorazepam/Ativan that should help with both anxiety and muscle spasm. Do not drink or drive while taking lorazepam and do not drive today or drink today. Call your doctor to arrange a follow-up appointment, make the next available appointment. In the interim, return anytime if worse or if new symptoms develop. Forms: PCP List Discharge Date/Time: 02/08/23 19:49
[2023-02-08] MEDS ORDERED: LORazepam 1 MG TABLET PO STA (19:37)
[2023-02-08 19:56] VITALS: BP 158/75
== END 2023-02-08 19:49 | disposition home or self-care (01) ==
LOC: ED 18:19
DX: F41.0 Panic disorder [episodic paroxysmal anxiety] (principal); M54.50 Low back pain, unspecified
CPT/HCPCS: 96372; 99283; J1170; J2060; J8499

== ENCOUNTER 2023-02-11 07:35 | Outpatient (CLI) | payer MEDICAID ==
[2023-02-11 08:07] LABS: ALBUMIN 4.1 g/dL (3.2-5.5); ALBUMIN/GLOBULIN RATIO 1.4 (1.0-2.2); BILIRUBIN,TOTAL 0.6 mg/dL (0.2-1.0); CALCIUM 9.2 mg/dL (8.5-10.3); CREATININE 0.5 mg/dL (0.6-1.3); GTT GLUCOSE,FASTING 94 mg/dL (74-109); POTASSIUM 3.4 mmol/L (3.5-4.5); TOTAL PROTEIN 7.1 g/dL (6.4-8.9)
== END 2023-02-11 07:36 | disposition home or self-care (01) ==
LOC: LAB 07:35
PROVIDERS: ATTEND Nurse Practitioner
DX: R63.2 Polyphagia (principal); Z51.81 Encounter for therapeutic drug level monitoring; R73.03 Prediabetes; E28.2 Polycystic ovarian syndrome
CPT/HCPCS: 36415; 80053; 82951

== ENCOUNTER 2023-05-11 12:08 | Outpatient (CLI) | payer MEDICAID | END 2023-05-11 23:59 | disposition short-term general hospital (02) | LOC: EMS 12:08 | DX: R56.9 Unspecified convulsions (principal); R00.0 Tachycardia, unspecified | CPT/HCPCS: A0425; A0427; A0999 ==

== ENCOUNTER 2023-05-25 07:48 | Outpatient (CLI) | payer MEDICAID ==
[2023-05-25 08:01] LABS: BASOPHILS % (AUTO) 0.8 %; EOSINOPHILS # (AUTO) 0.2 10^3/uL (0.0-0.7); EOSINOPHILS % (AUTO) 3.9 %; HCT - HEMATOCRIT 34.6 % (37.0-47.0); HGB - HEMOGLOBIN 10.9 g/dL (12.0-16.0); LYMPHOCYTES # (AUTO) 1.6 10^3/uL (1.5-3.5); LYMPHOCYTES % (AUTO) 29.5 %; MEAN CORPUSCULAR HEMOGLOBIN 28.2 pg (27.0-31.0); MEAN CORPUSCULAR HGB CONC 31.5 g/dL (32.0-36.0); MEAN CORPUSCULAR VOLUME 89.4 fL (81.0-99.0); MEAN PLATELET VOLUME 8.9 fL (7.9-10.8); MONOCYTES # (AUTO) 0.6 10^3/uL (0.0-1.0); MONOCYTES % (AUTO) 11.1 %; NEUTROPHILS # (AUTO) 2.9 10^3/uL (1.5-6.6); NEUTROPHILS % (AUTO) 54.5 %; PLT - PLATELET COUNT 220 10^3/uL (130-450); RED BLOOD COUNT 3.87 10^6/uL (4.20-5.40); RED CELL DISTRIBUTION WIDTH 13.5 % (12.0-15.0); WHITE BLOOD COUNT 5.3 x10^3/uL (4.8-10.8)
[2023-05-25 08:27] LABS: ALBUMIN 3.9 g/dL (3.2-5.5); ALBUMIN/GLOBULIN RATIO 1.4 (1.0-2.2); ALKALINE PHOSPHATASE 49 IU/L (42-121); ALT ALANINE AMINOTRANSFERASE 10 IU/L (10-60); AST ASPARTATE AMINOTRANSFERASE 17 IU/L (10-42); BILIRUBIN,TOTAL 0.4 mg/dL (0.2-1.0); BUN - BLOOD UREA NITROGEN 14 mg/dL (6-20); CALCIUM 9.1 mg/dL (8.5-10.3); CARBON DIOXIDE - CO2 32 mmol/L (21-32); CHLORIDE 103 mmol/L (101-111); CREATININE 0.5 mg/dL (0.6-1.3); CRP - C-REACTIVE PROTEIN < 0.5 mg/dL (<0.5); GFR - MDRD 137 (>89); GLUCOSE 93 mg/dL (74-104); POTASSIUM 3.9 mmol/L (3.5-4.5); SODIUM 139 mmol/L (135-145); TOTAL PROTEIN 6.7 g/dL (6.4-8.9)
[2023-05-25 08:38] LABS: THYROID STIMULATING HORMONE 1.88 uIU/mL (0.34-5.60)
== END 2023-05-25 07:49 | disposition home or self-care (01) ==
LOC: LAB 07:48
PROVIDERS: ATTEND Nurse Practitioner
DX: R53.83 Other fatigue (principal)
CPT/HCPCS: 36415; 80053; 82607; 84443; 85025; 85651; 86140

== ENCOUNTER 2023-06-23 09:20 | Outpatient (CLI) | payer MEDICAID ==
--- NOTE | 2023-06-23 11:35 | XRAY Report ---
PROCEDURE: Knee 3V RT INDICATIONS: RIGHT KNEE PAIN TECHNIQUE: 3 views of the knee(s) were acquired. COMPARISON: None. FINDINGS: Bones: No fractures or dislocations. No suspicious bony lesions. Bipartite patella . Mild degener ative change with marginal osteophytes present. Soft tissues: Mild knee joint effusion. No suspicious soft tissue calcifications or masses. IMPRESSION: Mild degenerative change. Mild degenerative fusion. No acute bony abnormality. If there remains a hig h clinical concern for fracture, consider cross-sectional imaging now. If pain persists, consider rep eat x-ray in 10-14 days or cross-sectional imaging. Reviewed by: Jose Delgado MD on 06/23/2023 11:34 AM PST Approved by: Jose Delgado MD on 06/23/2023 11:34 AM PST Station ID: [id number]
== END 2023-06-23 09:21 | disposition home or self-care (01) ==
LOC: DI 09:20
PROVIDERS: ATTEND Nurse Practitioner
DX: M17.11 Unilateral primary osteoarthritis, right knee (principal); M24.661 Ankylosis, right knee

== ENCOUNTER 2023-10-22 14:28 | Outpatient (CLI) | payer MEDICAID ==
--- NOTE | 2023-10-22 15:11 | Sleep Patient Instructions ---
Sleep Center Visit Summary - Patient Visit Information Reason for Visit: Annual follow-up - Patient Instructions Additional Instructions: You will be completing a sleep study, either an in-lab polysomnography (PSG) or home sleep study (HST). You will follow-up in the sleep care office after the sleep study is completed to hear the results and talk about therapy, if needed. You will be called by our office staff to schedule this appointment, but you may contact us with any questions. - Clinic Information Contact: [facility] [address] [place] [address] [email or web address] T: [phone]
--- NOTE | 2023-10-22 15:16 | SLEEP CARE CONSULTATION ---
Information from patient questionnaire entered by Roya Le. I have reviewed and concur with the information entered by Roya Le. This document represents the service I personally performed and the decisions made by me, Samia Ramirez ARNP. History of Present Illness Service Date and Time: 10/22/2023 1428 Previous diagnosis: Mild, Obstructive Sleep Apnea-Hypopnea Syndrome AHI: 11.4 (09/18/22)(9.1 in 2020)) Reason for follow up: annual (LAST SEEN 08/2022) Accompanied by: SonOli Equipment type: CPAP (PT NEVER GOT CPAP NEED MACHINE) Prior sleep studies: Yes Year and Where: 2020 - [facility]; 2013 - [facility] Type of Sleep Study: Polysomnography HPI additional information: SYLVIA VAZQUEZ was diagnosed to have mild, AHI 11.4, obstructive sleep apnea- hypopnea syndrome and returned today for annual follow-up. Her current complaints are excessive daytime sleepiness, fatigue, frequent night awakenings, snoring, unrefreshed sleep and waking up with headaches. The patient tells me that she normally goes to bed around 11 pm, and it takes her approximately few minutes to fall asleep. She has been told that she snores loudly and irregularly at night. She has not been observed to stop breathing in her sleep. Her bed partner can still sleep in the same bed. She can recall waking up on the average of 2 times during the night. Most of the time she wakes up because of unknown reasons. She has occasionally awakened for her own snoring. There is a lot of tossing and turning in her sleep. Generally there is no recollection of dreams. She usually wakes up at 0600 and does not feel refreshed. She usually does have a morning headache about 3 days a week. During the day she complains of feeling sleepy and fatigued. She has never fallen asleep while driving nor has any accident due to sleepiness. She usually only takes unintentional naps for about 60 minutes during the day. If she naps, upon falling asleep during the day she denies having vivid dreams. She reports having impaired concentration during the day. There is somniloquy (sleep talking) but no somnambulism (sleep walking). Sleep Study - Results Type of Sleep Study: Polysomnography Prior sleep studies: Yes Year and Where: 2020 - [facility]; 2013 - [facility] Polysomnography/Home Sleep Study results: 09/18/2022 Physician Impression: The quality of the study is good. The length of the study is adequate (> 240 minutes). Please also see the tabulated and graphic data. 1. Obstructive Sleep Apnea-Hypopnea (ICD-10 G47.33), mild, with an AHI of 11.4/hr and nancy SaO2 of 82%. During the study, the patient had 37 apneas (36 obstructive, 0 central, 1 mixed) and 43 hypopneas. The longest episode lasted 72.5 seconds. The patient did not sleep supine during this study. 2. Hypoxemia (ICD-10 R09.02), mild, with the lowest oxygen saturation of 82 % and 3.2 minutes with SaO2 under 90%. Baseline oxygen saturation was normal (Average oxygen saturation was 93%). 3. Tachycardia, with maximum recoded heart rate of 255 beats per minute, most likely an artifact. Subjective Initial [place] Sleepiness Scale score: 15 (in 2013) Current [place] Sleepiness Scale score: 16 (10/22/23) Allergies and Home Medications Known drug allergies: No Drug allergies reviewed: Yes Home medication list reviewed: Yes (Phentermine, Prozac) Allergy and home medication list: Allergies No Known Drug Allergies Allergy (Verified 10/20/23 10:58) Review of Systems Review of systems same as previous: No (Arnold-Chiari malformation) Physical Exam Vital signs obtained and entered by: ROYA Cardenas MA Blood Pressure: 115/70 (LEFT ARM) Cuff size: long Heart Rate: 76 O2 Saturation: 100 Height: 5 ft 5 in Weight: 260 lb 6.4 oz Body Mass Index: 43.3 BMI Classification: Morbidly Obese Impression and Plan 1. Obstructive Sleep Apnea-Hypopnea Syndrome, mild. Sylvia returns to office today, a year after last sleep study but we did not see her in follow up and she was not set up on treatment at that time. She says she just did not remember that she had done the last sleep study and that she needed to come in for followup. She has a diagnosis now of Arnold-Chiari malformation which affects her memory. She returns to continue to see what treatment she needs for her sleep apnea. I recommend proceeding to polysomnography to confirm the diagnosis and to assess severity. I obtained agreement to proceed. Patient's apnea severity and rationale for treatment to reduce apnea, improve sleep quality and reduce cardiovascular and cerebrovascular events was reviewed. I also reviewed the benefit of consistent treatment of LUPILLO for depression/anxiety. 2. Obesity, unspecified. Currently patients BMI is 43.3. Obesity increases the risk of apnea, CPAP pressure requirements and overall health risks especially cardiovascular and diabetes. Thus patient is advised to lose weight. * Schedule polysomnography * Avoid long distance driving or driving when feeling sleepy. * Avoid alcohol, sedative and muscle relaxant around bedtime. * Attempt to lose weight. * Review instructions provided by trained office staff on how to prepare for the sleep study. * Return for follow-up after sleep study completed. Counseling Topics: Weight loss health impact Plan: PSG/HST and followup Visit Type: In Office Time Spent with Patient (minutes): 20 Provider Statement: I spent 100% of the Face to Face Visit with the patient with greater than 50% spent counseling the patient and coordination of care.
[2023-10-22 15:19] VITALS: BP 115/70; O2SAT 100
== END 2023-10-22 14:29 | disposition home or self-care (01) ==
LOC: SC 14:28
PROVIDERS: ATTEND Nurse Practitioner Family
DX: G47.33 Obstructive sleep apnea (adult) (pediatric) (principal); E66.01 Morbid (severe) obesity due to excess calories; Z68.41 Body mass index [BMI] 40.0-44.9, adult
CPT/HCPCS: 99212; 99213

== ENCOUNTER → 2023-11-19 | Outpatient (CLI) | payer MEDICAID | LOC: SC 09:03 | PROVIDERS: ATTEND Nurse Practitioner Family | DX: Z53.9 Procedure and treatment not carried out, unspecified reason (principal) ==

== ENCOUNTER 2023-12-18 20:46 | Outpatient (CLI) | payer MEDICAID | END 2023-12-18 20:47 | disposition home or self-care (01) | LOC: SC 20:46 | PROVIDERS: ATTEND Nurse Practitioner Family | DX: G47.33 Obstructive sleep apnea (adult) (pediatric) (principal); E66.9 Obesity, unspecified; Z68.41 Body mass index [BMI] 40.0-44.9, adult | CPT/HCPCS: 95810 ==

== ENCOUNTER 2024-02-16 19:22 | Outpatient (CLI) | payer MEDICAID ==
--- NOTE | 2024-02-16 19:52 | XRAY Report ---
PROCEDURE: Foot 1-2V RT INDICATIONS: CONTUSION OF RIGHT FOOT TECHNIQUE: 2 views of the foot were acquired. COMPARISON: None. FINDINGS: Bones: Mildly displaced and comminuted distal fifth metatarsal fracture. Mild background degenerative changes. Soft tissues: Soft tissue swelling is present. Plantar enthesopathy. No suspicious calcifications. IMPRESSION: Fifth metatarsal distal shaft fracture. Reviewed by: Gary Camarillo MD on 02/16/2024 7:51 PM PDT Approved by: Gary Camarillo MD on 02/16/2024 7:51 PM PDT Station ID: [id number]
== END 2024-02-16 19:23 | disposition home or self-care (01) ==
LOC: DI 19:22
PROVIDERS: ATTEND Nurse Practitioner
DX: S92.351A Displaced fracture of fifth metatarsal bone, right foot, initial encounter for closed fracture (principal)

== ENCOUNTER 2024-02-23 08:10 | Outpatient (CLI) | payer MEDICAID ==
--- NOTE | 2024-02-23 20:27 | XRAY Report ---
PROCEDURE: Foot 3+V RT (Weight Bearing) INDICATIONS: NONDISPLACED FX OF FIFTH METATARSAL BONE TECHNIQUE: 3 views of the foot were acquired. COMPARISON: 02/16/2024 FINDINGS: Bones: Similar appearance of mildly displaced comminuted fifth metatarsal fracture.. No suspicious b megan lesions. Soft tissues: No tibiotalar joint effusion. Achilles tendon appears normal. IMPRESSION: Similar appearance of fifth metatarsal shaft fracture. Reviewed by: Freddy Stephenson MD on 02/23/2024 8:26 PM PDT Approved by: Freddy Stephenson MD on 02/23/2024 8:26 PM PDT Station ID: [id number]
== END 2024-02-23 08:11 | disposition home or self-care (01) ==
LOC: DI 08:10
PROVIDERS: ATTEND Orthopaedic Surgery
DX: S92.351A Displaced fracture of fifth metatarsal bone, right foot, initial encounter for closed fracture (principal)